=== PATIENT | male | born 1940 | race Caucasian/White ===

== ENCOUNTER → 2017-11-10 08:34 | Outpatient (CLI) | payer MEDICARE, SELFPAY ==
[2017-11-10 12:37] LABS: ALB/GLOB Ratio 0.9 RATIO (0.9-2.4); AST(SGOT) 17 U/L (15-37); Alanine Aminotransfer ALT/SGPT 19 U/L (16-61); Albumin, Serum 3.7 g/dL (3.2-5.0); Alkaline Phosphatase 71 U/L (45-117); Anion Gap 7 (5-15); BUN 24 mg/dL (7-18); BUN/Creat Ratio 17.4 RATIO (10-20); Calcium,Total 9.1 mg/dL (8.5-10.1); Chloride 105 mmol/L (98-107); Cholesterol 151 mg/dL (200); Creatinine, Serum 1.38 mg/dL (0.70-1.30); EST Glomerular Filtration Rate 53 mL/min (>60); Est Glom Filt Rate - Afr Amer 64 mL/min (>60); Glucose 142 mg/dL (74-106); High Density Lipoprotein 48 mg/dL; Potassium 4.6 mmol/L (3.5-5.1); Protein, Total 7.7 g/dL (6.4-8.2); Sodium Level 141 mmol/L (136-145); Triglycerides 171 mg/dL; Very Low Density Lipoprotein 34 mg/dL (5-40)
== END ==
LOC: LAB.FUTURE 05-13 00:32 → BFHLAB 03-08 08:52
PROVIDERS: Family Provider Family Medicine; PCP Family Medicine; Visit Provider Family Medicine
DX: I12.9 Hypertensive chronic kidney disease with stage 1 through stage 4 chronic kidney disease, or unspecified chronic kidney disease (principal); E11.22 Type 2 diabetes mellitus with diabetic chronic kidney disease; N18.3 Chronic kidney disease, stage 3 (moderate); E11.21 Type 2 diabetes mellitus with diabetic nephropathy; E78.5 Hyperlipidemia, unspecified
CPT/HCPCS: 36415; 80053; 80061; 83036

== ENCOUNTER 2018-04-09 17:26 | Emergency (ER) | payer MEDICARE, SELFPAY ==
[2018-04-09] VITALS (10 sets, daily range): BP systolic 147–217; BP diastolic 70–131; PULSE 91–113; RESP 14–22; TEMP 36.7; O2SAT 95–100; BMI 24.7
[2018-04-09] MEDS: Morphine 4 MG/ML Syringe IV (18:47)
[2018-04-09] MEDS: Ondansetron 4 MG/2 ML Vial IV (18:47)
[2018-04-09] MEDS: Propofol 200 MG/20 ML Vial IV BOLUS (19:42)
--- NOTE | 2018-04-09 20:35 | ED.VISSUMM ---
- ER Visit Summary Date of Service: 04/09/18 Chief Complaint: [Fall] History of Present Illness: The patient is a 77 M [presents the emergency department with a fall that occurred prior to arrival in the emergency department. Patient states that he was on a ladder pruning a tree when he fell about 4 5 feet and landed onto a tree root with his left shoulder. Patient did strike his head but no loss of consciousness. Patient has been ambulatory. Patient complains mostly of pain in his left shoulder. Patient denies any neck pain or chest pain or abdominal pain. Past medical history significant for diabetes, hypertension, high cholesterol, and TIAs. Patient is not on any blood thinners.] Physical Examination: [HEENT-PERRLA, EOMI. Cranial nerves II through XII grossly intact. TMs clear. Mucous membranes moist. No adenopathy. Patient has no C-spine tenderness on palpation and normal active range of motion is painless. Patient has a small superficial abrasion to the left frontal scalp. Cardiovascular-regular rate and rhythm without murmur or ectopy Lungs-clear to auscultation, chest wall stable without crepitus or subcu emphysema Abdomen-normoactive bowel sounds, soft, nontender, no rebound or rigidity, no peritoneal signs. Extremities-intact ?4, normal range of motion, normal pulses. Left shoulder-patient has obvious sulcus sign. Patient has superficial abrasion noted. Patient has limited range of motion secondary to pain and deformity. He is nervously intact distally. Patient has superficial abrasion to his elbow. Test Results: [CT scan of the brain without contrast showed chronic involutional changes otherwise nothing acute. Patient had x-rays of the left shoulder that showed a fracture of the greater tubercle of the humerus and inferior dislocation of the glenohumeral joint.] Emergency Department Course and Treatment: [Patient was consented for procedural sedation and received a total of 80 mg of propofol with good sedation. I was able to easily reduce his shoulder by gentle traction. Patient was placed in a sling and swath. Repeat postreduction films obtained showed good reduction of the shoulder at the glenohumeral joint. Patient neurovascular intact distally afterwards.] Treatment Plan: [Patient will be given a prescription for [place] for pain. Patient will be referred to orthopedics on-call.] Disposition: [Discharged home in stable condition] Impression: [Left shoulder dislocation-reduced Humerus fracture Closed head injury Mechanical fall] This note was generated with Stuffle dictation software. It may contain incorrect words, spelling, and punctuation that were not noted in review of the chart prior to signing ED Disposition - Plan for ED Patient: Chief Complaint: Fall Referrals: Castillo Pride DO [Primary Care Provider] -
--- NOTE | 2018-04-09 20:38 | ED.DEP ---
ED Disposition - Plan for ED Patient: Chief Complaint: Fall Instructions: ED Mechanical Fall, ED Dislocation Shoulder Redu, ED Fx Upper Ext Prescriptions: Hydrocodone/Acetaminophen [[place] 5-325 Tablet] 1 ea PO 4X/DAY PRN PRN 5 Days #20 tab PRN Reason: Pain Referrals: Castillo Pride DO [Primary Care Provider] - John Mendoza MD [STAFF PHYSICIAN] - 3-5 Days
== END 2018-04-09 21:03 | disposition home or self-care (01) ==
PROVIDERS: Emergency Provider Emergency Medicine; Family Provider Family Medicine; PCP Family Medicine
DX: S43.035A Inferior dislocation of left humerus, initial encounter (principal); S42.252A Displaced fracture of greater tuberosity of left humerus, initial encounter for closed fracture; S00.01XA Abrasion of scalp, initial encounter; S50.319A Abrasion of unspecified elbow, initial encounter; W11.XXXA Fall on and from ladder, initial encounter; Y93.9 Activity, unspecified; Y92.9 Unspecified place or not applicable; E11.9 Type 2 diabetes mellitus without complications; I10 Essential (primary) hypertension; E78.00 Pure hypercholesterolemia, unspecified; Z86.73 Personal history of transient ischemic attack (TIA), and cerebral infarction without residual deficits; Z79.82 Long term (current) use of aspirin; Z79.84 Long term (current) use of oral hypoglycemic drugs; Z79.899 Other long term (current) drug therapy
CPT/HCPCS: 23665; 70450; 73030; 96374; 96375; 99284; J7030; A4216; J2405

== ENCOUNTER → 2018-05-05 14:52 | Outpatient (CLI) | payer MEDICARE, SELFPAY ==
[2018-05-05 17:28] LABS: Anion Gap 11 (5-15); BUN 26 mg/dL (7-18); BUN/Creat Ratio 16.6 RATIO (10-20); Calcium,Total 9.5 mg/dL (8.5-10.1); Chloride 100 mmol/L (98-107); Creatinine, Serum 1.57 mg/dL (0.70-1.30); EST Glomerular Filtration Rate 45 mL/min (>60); Est Glom Filt Rate - Afr Amer 55 mL/min (>60); Glucose 353 mg/dL (74-106); Potassium 4.5 mmol/L (3.5-5.1); Sodium Level 139 mmol/L (136-145)
[2018-05-05 17:35] LABS: Hemoglobin A1c 6.7 % (4.2-6.3)
[2018-05-05 17:52] LABS: Microalbumin,Random Urine 8.7 mg/L (NO RANGE EST.); Microalbumin:Creatinine Ratio 5.2 mg/g CRE (<30 mg/g CRE)
== END ==
LOC: LAB.FUTURE 11-04 00:34 → BFHLAB 03-08 08:51
PROVIDERS: Family Provider Family Medicine; PCP Family Medicine; Visit Provider Family Medicine
DX: E11.22 Type 2 diabetes mellitus with diabetic chronic kidney disease (principal); N18.3 Chronic kidney disease, stage 3 (moderate)
CPT/HCPCS: 36415; 80048; 82043; 82570; 83036

== ENCOUNTER → 2018-05-29 11:28 | Outpatient (CLI) | payer MEDICARE, SELFPAY ==
[2018-05-29 16:05] LABS: Anion Gap 9 (5-15); BUN 20 mg/dL (7-18); BUN/Creat Ratio 12.9 RATIO (10-20); Calcium,Total 9.1 mg/dL (8.5-10.1); Chloride 103 mmol/L (98-107); Creatinine, Serum 1.55 mg/dL (0.70-1.30); EST Glomerular Filtration Rate 46 mL/min (>60); Est Glom Filt Rate - Afr Amer 56 mL/min (>60); Glucose 312 mg/dL (74-106); Potassium 4.3 mmol/L (3.5-5.1); Sodium Level 136 mmol/L (136-145)
== END ==
PROVIDERS: Family Provider Family Medicine; PCP Family Medicine; Visit Provider Family Medicine
DX: N18.3 Chronic kidney disease, stage 3 (moderate) (principal)
CPT/HCPCS: 36415; 80048

== ENCOUNTER → 2019-02-08 09:54 | Outpatient (CLI) | payer MEDICARE, SELFPAY ==
[2019-02-08 12:15] LABS: Absolute Lymphocyte Count 1.79 X10^3/ul (0.83-4.51); Absolute Neutrophil Count 4.2 X10^3/uL (2.0-7.7); Basophil# 0.05 X10^3/uL; Basophil% 0.7 % (0-1); Eosinophil# 0.18 X10^3/uL; Eosinophils% 2.6 % (0-5); Hematocrit 42.3 % (40-54); Hemoglobin 14.6 g/dl (13.0-16.5); Lymphocyte # 1.79 X10^3/ul (4.0); Lymphocyte % 25.8 % (19-41); Mean Corp Hgb Conc 34.5 g/gl (32-36); Mean Corpuscular Hgb 32.7 pg (27.0-32.0); Mean Corpuscular Volume 94.6 fL (80-94); Mean Platelet Vol. 12.1 fl (6.2-12.0); Monocyte# 0.69 X10^3/uL; Monocyte% 9.9 % (0-10); Neutrophil # 4.24 X10^3/uL (2.7-7.7); Platelet Count 123 K/mm3 (150-450); RBC Distribution Width CV 12.3 % (11.6-14.6); RBC Distribution Width SD 41.8 fl (35.1-43.9); Red Blood Count 4.47 M/mm3 (4.6-6.2)
[2019-02-08 12:23] LABS: POSITIVE COUNT NO; POSITIVE DIFFERENTIAL NO; POSITIVE MORPHOLOGY NO
[2019-02-08 12:53] LABS: Hemoglobin A1c 8.1 % (4.2-6.3)
[2019-02-08 12:56] LABS: ALB/GLOB Ratio 0.9 RATIO (0.9-2.4); AST(SGOT) 21 U/L (15-37); Alanine Aminotransfer ALT/SGPT 26 U/L (16-61); Albumin, Serum 3.7 g/dL (3.2-5.0); Alkaline Phosphatase 72 U/L (45-117); Anion Gap 10 (5-15); BUN 31 mg/dL (7-18); BUN/Creat Ratio 22.8 RATIO (10-20); Calcium,Total 9.3 mg/dL (8.5-10.1); Chloride 105 mmol/L (98-107); Cholesterol 175 mg/dL (200); Creatinine, Serum 1.36 mg/dL (0.70-1.30); EST Glomerular Filtration Rate 54 mL/min (>60); Est Glom Filt Rate - Afr Amer 65 mL/min (>60); Globulin 4.3 g/dL (2.2-4.2); Glucose 188 mg/dL (74-106); High Density Lipoprotein 46 mg/dL; Potassium 4.5 mmol/L (3.5-5.1); Sodium Level 139 mmol/L (136-145); Triglycerides 251 mg/dL; Very Low Density Lipoprotein 50 mg/dL (5-40)
[2019-02-08 13:00] LABS: Vitamin D,25 Hydroxy 42.2 ng/mL (29.95-100.01)
[2019-02-08 13:07] LABS: Microalbumin,Random Urine 5.2 mg/L (NO RANGE EST.); Microalbumin:Creatinine Ratio 9.2 mg/g CRE (<30 mg/g CRE)
== END ==
LOC: LAB.FUTURE 08-17 00:31 → BFHLAB 09-09 08:54
PROVIDERS: Family Provider Family Medicine; PCP Family Medicine; Visit Provider Family Medicine
DX: I12.9 Hypertensive chronic kidney disease with stage 1 through stage 4 chronic kidney disease, or unspecified chronic kidney disease (principal); E11.22 Type 2 diabetes mellitus with diabetic chronic kidney disease; N18.3 Chronic kidney disease, stage 3 (moderate)
CPT/HCPCS: 36415; 80053; 80061; 82043; 82306; 82570; 83036; 85025

== ENCOUNTER → 2020-04-25 14:56 | Outpatient (CLI) | payer MEDICARE, SELFPAY ==
--- NOTE | 2020-04-25 15:02 | CT_ITS ---
We are attempting to reach an attending provider to discuss findings. An addendum with communication details will be sent when the communication is complete. STUDY: CT BRAIN WITHOUT CONTRAST REASON FOR EXAM: Male, 79 years old. Acute CVA. RADIATION DOSAGE (If Supplied By Facility): CTDIvol = ( 60.81 ) mGy, DLP = ( 1044.28 ) mGycm TECHNIQUE: Transaxial CT imaging of the brain was performed without administration of intravenous contrast material. Individualized dose optimization techniques were used for this CT. COMPARISON: 04/09/2018. FINDINGS: Normal soft tissue structures. Normal calvarium. Normal size ventricles and extra-axial spaces for the patient''s age. There are areas of decreased attenuation within the white matter tracts of the supratentorial brain, consistent with microvascular disease changes. There is encephalomalacia and white matter on the right frontoparietal region suggesting remote infarct. There is minimal low attenuation within the white matter of the left occipital lobe suggesting remote or subacute infarct. This was not previously noted. Mild associated sulcal effacement without mass effect or midline shift. Small area of encephalomalacia, consistent with remote infarct, is again seen in the right occipital lobe. Normal basal ganglia and thalami. Normal brainstem. Normal cerebellum. There is no intracranial hemorrhage. There are no findings of an acute ischemic infarction. Normal visualized paranasal sinuses. CT/Brain/Head without Contrast IMPRESSION: 1. Subacute infarct in the left occipital lobe. 2. 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 Electronically Signed: Silas London DO at 16:03 EDT Tel [phone], Service support ,
== END ==
PROVIDERS: PCP Family Medicine; Referring Provider Family Medicine; Visit Provider Family Medicine
DX: I63.9 Cerebral infarction, unspecified (principal); R41.89 Other symptoms and signs involving cognitive functions and awareness
CPT/HCPCS: 70450

== ENCOUNTER 2020-05-03 13:30 | Outpatient (RCR) | payer MEDICARE, SELFPAY ==
--- NOTE | 2020-05-03 14:50 | HP.PTEVAL_ITS ---
Patient's Visit Information MARIN AVERY is a 79 year old M referred to Physical Therapy by Dr. Castillo Pride DO with a diagnosis of CVA. Date of Evaluation: 05/03/20 Physical Therapist: Jeremiah Sullivan PT, ATC - Visit Plan Frequency: 2-3x /Week Duration: 4 Weeks Plan: R UE strengthening, scap stab ex's, UBE, and HEP - Subjective CVA: 2 weeks ago. Pt had a CT scan which showed he had a CVA at that time as well as 2 other ones from the past. Pt reports his R UE has been effected from this incident. Pt notes his memory is not the same either. Pt notes he is getting stronger in his R UE, but still has weakness present. Pt also notes l osing partial peripheral vision of the R eye. Pt has occasional tingling or numbness in R UE. Pt reports he is limited with his usual activity such as cutting wood and hammering nails. No sleep difficulty at this time, but does note he has his sleep schedule mixed up as he sleeps all day. No pain this date. - Objective Neuro: B UE sensation is WNL to light touch. B bicepital reflex 2/3. ROM: L shoulder flex= 105, abd= 105, ER= 40; R shoulder flex= 115, abd= 115, ER= 40. MMT: R UE is grossly 4-/5 throughout. L UE 5/5 throughout. Gait: Pt is able to ambulate greater than 1000' without difficulty - Goals Goal 1:: Increase R UE strength x 1 grade to aid with IADL's Goal Time Frame: 4-6 Weeks Goal 2:: I with HEP Goal Time Frame: 4-6 Weeks Goal 3:: Pt will return to performing all IADL's without limitation Goal Time Frame: 4-6 Weeks - Rehabilitation Potential Physical Therapy Diagnosis: Pt has R UE weakness and visual deficits secondary to CVA Rehabilitation Potential: Good - Anticipated Interventions Patient/Client Instruction: Educate patient on: Condition, Plan of Care For the Purpose of:: To improve self management Therapeutic Exercise to Include: Strength training, Endurance training, Coordination, Scapular Strength/Stabilization For the Purpose of:: To increase ROM, To improve muscle performance and motor function Thank you for the opportunity to evaluate your patient. For Medicare and Medicare HMO plans, please review the plan of care and approve it. It will need to be FAXED BACK to us at [phone] for Medicare purposes. For Medicare only, by signing this I certify the plan of care. Please let me know if there are questions or concerns regarding this plan of care. Physician Signature: Date:
--- NOTE | 2020-06-07 07:38 | HP.PT.NRP ---
MARIN AVERY was seen in my office for initial evaluation on 05/03/20. The following Plan of Care was established for this patient: Initial Frequency: 2-3x /Week Initial Duration: 4 Weeks Patient/Client Instruction: Educate patient on: Condition, Plan of Care For the Purpose of:: To improve self management Therapeutic Exercise to Include: Strength training, Endurance training, Coordination, Scapular Strength/Stabilization For the Purpose of:: To increase ROM, To improve muscle performance and motor function This patient was last seen in our office . Pertinent comments regarding their Physical therapy will appear below: Pt was evaluated for R UE weakness on the date of 05/03/20. Pt has not returned through todays date and is discontinued at this time. At this point I will be discontinuing this patient from physical therapy. I would be happy to see this patient again in the future if found appropriate by the physician. Thank you! Jeremiah Sullivan, PT, ATC
== END 2020-05-03 19:00 | disposition home or self-care (01) ==
LOC: PT 13:30
PROVIDERS: PCP Family Medicine; Referring Provider Family Medicine; Visit Provider Family Medicine
DX: I69.30 Unspecified sequelae of cerebral infarction (principal); R29.898 Other symptoms and signs involving the musculoskeletal system
CPT/HCPCS: 97161

== ENCOUNTER → 2020-06-07 12:55 | Outpatient (CLI) | payer MEDICARE, SELFPAY ==
[2018-04-09 17:28] VITALS: BMI 24.7
--- NOTE | 2020-06-07 12:58 | CDU_ITS ---
Reason For Study: CVA Rt. Velocities/BP Lt. Velocities/BP Prox CCA 119.3/9.7 cm/sec. Prox CCA 90.0/7.9 cm/sec. Mid CCA 110.1/9.7 cm/sec. Mid CCA 90.0/11.5 cm/sec. Dist CCA 84.6/7.9 cm/sec. Dist CCA 70.0/7.9 cm/sec. Prox ICA 86.0/14.6 cm/sec. Prox ICA 91.9/17.0 cm/sec. Mid ICA 81.6/15.7 cm/sec. Mid ICA 88.2/18.8 cm/sec. Dist ICA 89.4/20.1 cm/sec. Dist ICA 90.0/20.6 cm/sec. Rt. ICA/CCA = .8. Lt. ICA/CCA = 1.0. Prox ECA 132.1 cm/sec. Prox ECA 166.8/6.0 cm/sec. Rt. Vert. 54.2/10.2 cm/sec. Lt. Vert. 63.0 cm/sec. Right Extracranial There is intimal thickening but no significant atherosclerotic plaque noted in the right common carotid artery. There is homogeneous, smooth atherosclerotic plaque noted in the right internal carotid artery. There is homogeneous, smooth atherosclerotic plaque noted in the right external carotid artery. Antegrade flow is noted in the right vertebral artery. Left Extracranial There is intimal thickening but no significant atherosclerotic plaque noted in the left common carotid artery. There is heterogeneous, irregular atherosclerotic plaque noted in the left internal carotid artery. There is homogeneous, smooth atherosclerotic plaque noted in the left external carotid artery. Antegrade flow is noted in the left vertebral artery. Procedure Carotid Duplex [id number]. This is a Carotid Duplex examination using B-mode, color flow and specral Doppler. The exam was diagnostic. Exam performed in department. Interpretation Summary Mild (<50%) stenosis right extracranial internal carotid. Mild (<50%) stenosis left extracranial internal carotid. Flow within the vertebral arteries is antegrade bilaterally. Ordering Physician: Castillo Pride Performed By: Cornleius Brooks RVT and Student
--- NOTE | 2020-06-07 12:59 | ECHOD_ITS ---
Reason For Study: CVA, HTN Procedure This was a 2D Doppler, Color Flow transthoracic echocardiogram. Exam performed in department. Left Ventricle Normal LV size. The estimated ejection fraction is 70 %. No evidence for diastolic dysfunction. No regional wall motion abnormalities noted. Right Ventricle Normal RV size. Normal systolic function. Atria Normal left atrium. Normal right atrium. No doppler evidence for ASD. Mitral Valve There is no mitral valve stenosis. Mild (1+) mitral valve insufficiency. Tricuspid Valve There is no tricuspid stenosis. Pulmonary artery systolic pressure is 30 mmHg. Trivial tricuspid valve insufficiency. Aortic Valve Trisinus/trileaflet aortic valve. There is no aortic stenosis. No aortic valve insufficiency. Pulmonic Valve There is no pulmonic valvular stenosis. Trivial pulmonic valve insufficiency. Great Vessels Normal aortic root. Pericardium/Pleural No pericardial effusion. Medication Previously negative bubble study on MARCIANO in '. MMode/2D Measurements & Calculations LVIDd: 3.9 cm IVSd: 0.81 cm Ao root diam: 2.9 cm LVIDs: 2.6 cm LVPWd: 0.84 cm RVDd: 4.6 cm FS: 34.4 % LAV(MOD-bp): 32.2 ml LVAd ap4: 21.8 cm2 SV(MOD-sp4): 37.1 ml LAV(MOD-bp) Indexed: 18.7 ml/m2 EDV(MOD-sp4): 58.3 ml LAV(MOD-sp2): 36.5 ml EDV(sp4-el): 61.1 ml LAV(MOD-sp4): 26.9 ml LVAs ap4: 11.9 cm2 ESV(MOD-sp4): 21.2 ml ESV(sp4-el): 21.8 ml EF(MOD-sp4): 63.6 % EF(sp4-el): 64.3 % SV(sp4-el): 39.3 ml LA A4 area: 12.4 cm2 LA dimension(2D): 3.6 cm RA A4 area: 12.2 cm2 Doppler Measurements & Calculations Lat Peak E' Ariel: 7.3 cm/sec Med Peak E' Ariel: 7.0 cm/sec MV V2 max: 114.5 cm/sec MV max P.2 mmHg MV V2 mean: 68.5 cm/sec MV mean P.1 mmHg MV V2 VTI: 19.3 cm Ao V2 max: 113.1 cm/sec LV V1 max: 79.4 cm/sec PA V2 max: 141.4 cm/sec Ao max P.1 mmHg LV V1 max P.5 mmHg PI end-d ariel: 79.2 cm/sec TR max ariel: 267.3 cm/sec TR max P.7 mmHg Interpretation Summary The estimated ejection fraction is 70 %. No evidence for diastolic dysfunction. Mild (1+) mitral valve insufficiency. Ordering Physician: Castillo Pride Referring Physician: Castillo Pride Performed By: Jessica Askew, BARAK, RVT
== END ==
PROVIDERS: PCP Family Medicine; Referring Provider Family Medicine; Visit Provider Family Medicine
DX: I63.9 Cerebral infarction, unspecified (principal); I10 Essential (primary) hypertension; I63.89 Other cerebral infarction
CPT/HCPCS: 93306; 93880

== ENCOUNTER 2020-07-17 13:08 | Emergency (ER) | payer MEDICARE, SELFPAY ==
[2020-07-07 13:29] VITALS: BMI 24.1
[2020-07-17 13:09] VITALS: BP 179/78; PULSE 73; RESP 17; TEMP 36.6; O2SAT 98; BMI 22.8
--- NOTE | 2020-07-17 13:22 | CT_ITS ---
INDICATION: WEAKNESS. FELL AND HIT HEAD. RECENT CVA. EXAMINATION: CT BRAIN - CT Head or Brain W/O Contrast Injection COMPARISON: Previous CT scan of the head obtained on 04/25/2020 . TECHNIQUE: A CT scan of the head was performed without IV contrast in the axial plane. Coronal and sagittal reconstruction images were also obtained. This exam was performed according to our departmental dose-optimization program, which includes automated exposure control, adjustment of the mA and/or kV according to patient size and/or use of iterative reconstruction technique. FINDINGS: The benson, medulla, and cerebellum appear to be normal. The ventricles and sulci are normal in size and shape. Old cortical infarcts are noted involving the calcarine cortex of the occipital lobes bilaterally and the right middle frontal gyrus. These infarcts were noted previously and are unchanged. The basal ganglia appear to be normal. The inner and outer tables of the skull are intact. The frontal, ethmoid, maxillary, and sphenoid sinuses are normal. The mastoid air cells are normal. CT/Brain/Head without Contrast IMPRESSION: Old cortical infarcts are noted involving the occipital lobes bilaterally and the middle frontal gyrus of the right frontal lobe. No acute abnormalities are identified. Electronically Signed: Tommy Steinberg, at 14:51 EST Tel , Service support ,
--- NOTE | 2020-07-17 13:22 | EKG12_ITS ---
Test Reason : WEAKNESS Blood Pressure : / mmHG Vent. Rate : 072 BPM Atrial Rate : 072 BPM P-R Int : 284 ms QRS Dur : 090 ms QT Int : 374 ms P-R-T Axes : 034 019 016 degrees QTc Int : 409 ms Sinus rhythm with 1st degree A-V block Otherwise normal ECG Confirmed by DEBORAH GARCIA, YUKI ([id number]), editorial project manager PARVIZ HARRIS ([id number]) on 07/19/2020 10:41:09 AM Referred By: WOLF Confirmed By:YUKI CABRERA MD
--- NOTE | 2020-07-17 13:25 | ED.DCSUM_ITS ---
History of Present Illness Chief Complaint: Weakness Informant: Patient Narrative: 79-year-old male states he got up much later than normal because he has not been sleeping well due to of chronic pain in his hip from arthritis. He went into the kitchen to make himself a cup of coffee states that he got very weak and lightheaded. He states he felt sweaty. He states he felt tingling in his right hand. He ended up falling down to the ground where he hit his head on the counter. He never lost consciousness however. He denies any chest pain shortness of breath. He denies any palpitations. - Past Medical History (1) Hyperlipemia Status: Chronic (2) Type 2 diabetes mellitus Status: Chronic Past Medical History - Allergies and Home Meds Allergies/Adverse Reactions: Allergies No Known Allergies Allergy (Verified 07/07/20 13:44) Primary Care Physician: Castillo Pride DO [Primary Care Provider] - 3-5 Days Past Medical History: - - Prior strokes Surgical History: no surgical history Lives: Spouse/ Significant Other Smoking Status: Never smoker - Family History Paternal Family History: Reports: Diabetes Maternal Family History: Reports: No pertinent history Review of Systems General: Reports: Malaise. Denies: Chills, Fever, Sweats Eyes: Denies: Visual changes - bilaterally, Diplopia ENT: Denies: Rhinorrhea, Sore throat Cardiovascular: Denies: Chest pain, Palpitations Respiratory: Denies: Dyspnea, Cough, Dyspnea on exertion Gastrointestinal: Denies: Abdominal pain, Nausea, Vomiting, Diarrhea, Melena, Hematochezia Genitourinary: Denies: Dysuria, Hematuria, Frequency Musculoskeletal: Denies: Back pain, Extremity Pain Skin: Denies: Rash, Wounds Neurological: Reports: Headache. Denies: Weakness, Numbness Physical Exam Vital Signs/Narrative: Vital Signs Temp Pulse Resp BP Pulse Ox 07/17/20 13:09 97.9 F 73 17 179/78 H 98 Inital Vital Signs reviewed: Yes General: Well nourished, Well developed, No Acute Distress Head: Normocephalic, Trauma - There is a linear 2 cm superficial abrasion of the right forehead. Eyes: Perrl, EOMI ENT: Moist mucous membranes, No rhinorrhea Neck: Supple, Nontender Cardiovascular: Regular rate, Regular rhythm, No murmurs Respiratory: No distress, CTA bilaterally, Chest nontender Abdomen: Soft, Nontender, Nondistended, Normal bowel sounds Back: Nontender, Normal Inspection Extremities: Nontender, No edema Skin: Normal color, No rash Neurological: Alert, Oriented x3, Cranial nerves II-XII grossly intact, Normal Strength, Normal Sensation, - - NIH of 0 Psychological: Normal affect, Normal Mood Diagnostic/Tx/Re-eval Clinical Impression(s) from Imaging Studies Brain CT 07/17/20 13:22 IMPRESSION: Old cortical infarcts are noted involving the occipital lobes bilaterally and the middle frontal gyrus of the right frontal lobe. No acute abnormalities are identified. Electronically Signed: Tommy Steinberg, at 14:51 EST Tel , Service support , Chest X-Ray 07/17/20 14:07 IMPRESSION: Normal portable chest. Electronically Signed: Tommy Steinberg, at 14:52 EST Tel , Service support , Laboratory Last Values WBC 9.6 K/mm3 (4.4-11.0) 07/17/20 13:35 RBC 4.13 M/mm3 (4.6-6.2) L 07/17/20 13:35 Hgb 13.3 g/dL (13.0-16.5) 07/17/20 13:35 Hct 39.9 % (40-54) L 07/17/20 13:35 MCV 96.6 fL (80-94) H 07/17/20 13:35 MCH 32.2 pg (27.0-32.0) H 07/17/20 13:35 MCHC 33.3 g/dL (32-36) 07/17/20 13:35 RDW Std Deviation 41.1 fl (35.1-43.9) 07/17/20 13:35 RDW Coeff of Lesly 11.7 % (11.6-14.6) 07/17/20 13:35 Plt Count 178 K/mm3 (150-450) 07/17/20 13:35 MPV 10.2 fl (6.2-12.0) 07/17/20 13:35 Immature Gran % (Auto) 0.400 % (0.0-0.9) 07/17/20 13:35 Neut % (Auto) 74.6 % (47-70) H 07/17/20 13:35 Lymph % (Auto) 14.2 % (19-41) L 07/17/20 13:35 [place] % (Auto) 7.0 % (0-10) 07/17/20 13:35 Eos % (Auto) 3.2 % (0-5) 07/17/20 13:35 Baso % (Auto) 0.6 % (0-1) 07/17/20 13:35 Absolute Neuts (auto) 7.1 X10^3/uL (2.0-7.7) 07/17/20 13:35 Absolute Lymphs (auto) 1.36 X10^3/uL (0.83-4.51) 07/17/20 13:35 Nucleated RBC % 0 % (0-5) 07/17/20 13:35 Sodium 139 mmol/L (136-145) 07/17/20 13:35 Potassium 4.6 mmol/L (3.5-5.1) 07/17/20 13:35 Chloride 104 mmol/L (98-107) 07/17/20 13:35 Carbon Dioxide 31.0 mmol/L (21.0-32.0) 07/17/20 13:35 Anion Gap 4 (5-15) L 07/17/20 13:35 BUN 18 mg/dL (7-18) 07/17/20 13:35 Creatinine 1.35 mg/dL (0.70-1.30) H 07/17/20 13:35 Estim Creat Clear Calc 37.33 ml/min 07/17/20 13:35 Est GFR (MDRD) Af Amer 65 mL/min (>60) 07/17/20 13:35 Est GFR (MDRD) Non-Af 54 mL/min (>60) L 07/17/20 13:35 BUN/Creatinine Ratio 13.3 RATIO (10-20) 07/17/20 13:35 Glucose 202 mg/dL (74-106) H 07/17/20 13:35 Calcium 9.2 mg/dL (8.5-10.1) 07/17/20 13:35 Magnesium 1.8 mg/dL (1.6-2.6) 07/17/20 13:35 Total Bilirubin 0.40 mg/dL (0.20-1.00) 07/17/20 13:35 AST 13 U/L (15-37) L 07/17/20 13:35 ALT 36 U/L (16-61) 07/17/20 13:35 Alkaline Phosphatase 85 U/L (45-117) 07/17/20 13:35 Troponin I < 0.015 ng/mL (<0.045) 07/17/20 13:35 Total Protein 7.6 g/dL (6.4-8.2) 07/17/20 13:35 Albumin 3.3 g/dL (3.2-5.0) 07/17/20 13:35 Globulin 4.3 g/dL (2.2-4.2) H 07/17/20 13:35 Albumin/Globulin Ratio 0.8 RATIO (0.9-2.4) L 07/17/20 13:35 Urine Color Yellow (Yellow) 07/17/20 14:30 Urine Clarity Clear (Clear) 07/17/20 14:30 Urine pH 6.0 (5.0 - 8.0) 07/17/20 14:30 Ur Specific [place] 1.020 (1.002-1.030) 07/17/20 14:30 Urine Protein 15 mg/dl (Negative) H 07/17/20 14:30 Urine Glucose (UA) 250 mg/dl (Normal) H 07/17/20 14:30 Urine Ketones Negative mg/dl (Negative) 07/17/20 14:30 Urine Occult Blood Negative /ul (Negative) 07/17/20 14:30 Urine Nitrite Negative (Negative) 07/17/20 14:30 Urine Bilirubin Negative mg/dL (Negative) 07/17/20 14:30 Urine Urobilinogen Normal mg/dl (Normal) 07/17/20 14:30 Ur Leukocyte Esterase Negative /ul (Negative) 07/17/20 14:30 Urine RBC 0 SEEN /hpf (0-5) 07/17/20 14:30 Urine WBC 0 SEEN /hpf (0-5) 07/17/20 14:30 Ur Squamous Epith Cells 0 SEEN /hpf (0-5) 07/17/20 14:30 Urine Bacteria 0 SEEN /hpf (None Seen) 07/17/20 14:30 Urine Mucus 0 SEEN /hpf (<or=2+) 07/17/20 14:30 - EKG Initial EKG Interpretation: Sinus Rhythm - EKG shows a sinus rhythm with a first-degree AV block. Ventricular rate of 72. No features of ACS noted. - Medical Decision Making My interpretation of the chest film is no acute findings. CT the brain was negative for acute trauma. Basic blood work appeared normal. Patient received some IV fluids. He has been sitting up in the bed on the monitor. No dysrhythmias were noted. He has been eating and drinking. Get him up and have him ambulate. If that goes well we should be able to get him home. I do not see an obvious cause for his near syncopal events. But his work-up is otherwise reassuring. ED Disposition - Plan for ED Patient: Disposition: Home or Assisted Living Diagnosis: Near syncope, Forehead contusion, Forehead abrasion Instructions: ED Head Injury Adult, ED Near-Fainting Uncertain Cause Referrals: Castillo Pride DO [Primary Care Provider] - 3-5 Days
[2020-07-17 13:42] LABS: Absolute Lymphocyte Count 1.36 X10^3/uL (0.83-4.51); Absolute Neutrophil Count 7.1 X10^3/uL (2.0-7.7); Basophil# 0.06 X10^3/uL; Basophil% 0.6 % (0-1); Eosinophil# 0.31 X10^3/uL; Eosinophils% 3.2 % (0-5); Hematocrit 39.9 % (40-54); Hemoglobin 13.3 g/dL (13.0-16.5); Lymphocyte # 1.36 X10^3/ul (4.0); Lymphocyte % 14.2 % (19-41); Mean Corp Hgb Conc 33.3 g/dL (32-36); Mean Corpuscular Hgb 32.2 pg (27.0-32.0); Mean Corpuscular Volume 96.6 fL (80-94); Mean Platelet Vol. 10.2 fl (6.2-12.0); Monocyte# 0.67 X10^3/uL; NRBC Flagged by Analyzer 0 % (0-5); Neutrophil # 7.14 X10^3/uL (2.7-7.7); Neutrophil % 74.6 % (47-70); Platelet Count 178 K/mm3 (150-450); RBC Distribution Width CV 11.7 % (11.6-14.6); RBC Distribution Width SD 41.1 fl (35.1-43.9); Red Blood Count 4.13 M/mm3 (4.6-6.2); White Blood Count 9.6 K/mm3 (4.4-11.0)
[2020-07-17 13:59] LABS: ALB/GLOB Ratio 0.8 RATIO (0.9-2.4); AST(SGOT) 13 U/L (15-37); Alanine Aminotransfer ALT/SGPT 36 U/L (16-61); Albumin, Serum 3.3 g/dL (3.2-5.0); Alkaline Phosphatase 85 U/L (45-117); Anion Gap 4 (5-15); BUN 18 mg/dL (7-18); BUN/Creat Ratio 13.3 RATIO (10-20); Calcium,Total 9.2 mg/dL (8.5-10.1); Chloride 104 mmol/L (98-107); Creatinine, Serum 1.35 mg/dL (0.70-1.30); EST Glomerular Filtration Rate 54 mL/min (>60); Est Glom Filt Rate - Afr Amer 65 mL/min (>60); Estimated Creatinine Clearance 37.33 ml/min; Globulin 4.3 g/dL (2.2-4.2); Glucose 202 mg/dL (74-106); Magnesium 1.8 mg/dL (1.6-2.6); Potassium 4.6 mmol/L (3.5-5.1); Protein, Total 7.6 g/dL (6.4-8.2); Sodium Level 139 mmol/L (136-145)
--- NOTE | 2020-07-17 14:07 | RAD_ITS ---
EXAM DESCRIPTION: PORTABLE AP CHEST CLINICAL HISTORY: 79 years Male, WEAKNESS, PT FELL AND HIT HEAD -- HX OF STROKE x4-6 WEEKS AGO WEAKNESS, PT FELL AND HIT HEAD -- HX OF STROKE x4-6 WEEKS AGO COMPARISON: None FINDINGS: The thorax is intact. The heart and mediastinum appear to be within normal limits. The lungs appear to be well areated without evidence of pneumonic consolidation or pleural effusion. RAD/Chest 1 View (Portable) IMPRESSION: Normal portable chest. Electronically Signed: Tommy Steinberg, at 14:52 EST Tel , Service support ,
[2020-07-17 14:38] LABS: Bacteria 0 SEEN /hpf (None Seen); Mucous, Urine 0 SEEN /hpf (<or=2+); Red Blood Cells-Urine 0 SEEN /hpf (0-5); Squamous Epithelial Cells - UA 0 SEEN /hpf (0-5); White Blood Cells 0 SEEN /hpf (0-5)
[2020-07-17 14:43] LABS: Color, Urine Yellow (Yellow); Glucose, Dipstick 250 mg/dl (Normal); Ketone-Dipstick Negative (Negative); Leukocyte Esterase-Dipstick Negative /ul (Negative); Nitrite-Dipstick Negative (Negative); Occult Blood-Urine Negative /ul (Negative); Protein-Dipstick 15 mg/dl (Negative); Urine Bilirubin Dipstick Negative (Negative); Urine Clarity Clear (Clear); Urine Urobilinogen Normal (Normal)
[2020-07-17 15:13] VITALS: BP 153/73; BP 155/78; BP 185/86; PULSE 79; PULSE 84
[2020-07-17 15:40] VITALS: BP 151/65; PULSE 78; RESP 16; O2SAT 97
== END 2020-07-17 15:59 | disposition home or self-care (01) ==
PROVIDERS: Emergency Provider Emergency Medicine; PCP Family Medicine
DX: R55 Syncope and collapse (principal); S00.83XA Contusion of other part of head, initial encounter; S00.81XA Abrasion of other part of head, initial encounter; E11.9 Type 2 diabetes mellitus without complications; Z79.84 Long term (current) use of oral hypoglycemic drugs; Z86.73 Personal history of transient ischemic attack (TIA), and cerebral infarction without residual deficits; W19.XXXA Unspecified fall, initial encounter; Z79.82 Long term (current) use of aspirin
CPT/HCPCS: 70450; 71045; 80053; 81001; 83735; 84484; 85025; 93005; 96360; 99285; J7040

== ENCOUNTER 2020-09-25 13:20 | Inpatient (IN) | payer MEDICARE, SELFPAY ==
[2020-09-25] VITALS (9 sets, daily range): BP systolic 131–196; BP diastolic 57–99; PULSE 76–94; RESP 15–16; TEMP 36.4–36.6; O2SAT 95–98; BMI 23.7; BMI 24.2; BMI 25.5
--- NOTE | 2020-09-25 13:51 | CT_ITS ---
STUDY: CT HEAD STROKE PROTOCOL W/O CONTRAST INJECTION REASON FOR EXAM: Male, 80 years old. Right sided weakness, facial droop, numbness/tingling to right face x 1 week, worse x yesterday. Hx hypertension, diabetes, CVA, TIA. RADIATION DOSAGE (If Supplied By Facility): CTDIvol = ( 44.99 ) mGy, DLP = ( a 12.98 ) mGycm TECHNIQUE: Transaxial CT imaging of the brain was performed without administration of intravenous contrast material. Individualized dose optimization techniques were used for this CT. COMPARISON: No relevant priors. FINDINGS: Normal soft tissue structures. Normal calvarium. There is mild cerebral atrophy with widening of the extra-axial spaces and ventricular dilatation. There are areas of decreased attenuation within the white matter tracts of the supratentorial brain, consistent with microvascular disease changes. Focal encephalomalacia is seen in the deep right frontoparietal lobe in keeping with prior ischemic insult. There is also a focal area of encephalomalacia in the left posterior parietal occipital lobe suggestive of prior infarction. Normal basal ganglia and thalami. Normal brainstem. Normal cerebellum. There is no intracranial hemorrhage. There are no findings of an acute ischemic infarction. Atherosclerotic plaque formation of the vertebral arteries and cavernous portions of the internal carotid arteries bilaterally. Normal visualized paranasal sinuses. CT/STROKE Brain/Head without Cont IMPRESSION: Chronic involutional changes of the brain. Stable old infarctions involving the right deep frontal region as well as the left posterior parietal occipital lobes. N.B. : The above information has been verbally conveyed by Ubaldo Lozada MD to Josesito Fontanez on 09/25/2020 14:18:09 (ET). Electronically Signed: Ubaldo Lozada MD at 14:19 EST , Service support ,
--- NOTE | 2020-09-25 13:51 | EKG12_ITS ---
Test Reason : NEURO Blood Pressure : / mmHG Vent. Rate : 080 BPM Atrial Rate : 080 BPM P-R Int : 278 ms QRS Dur : 082 ms QT Int : 352 ms P-R-T Axes : 034 007 018 degrees QTc Int : 405 ms Sinus rhythm with 1st degree A-V block Otherwise normal ECG Confirmed by DEBORAH GARCIA, YUKI ([id number]), newspaper photo editor PARVIZ HARRIS ([id number]) on 09/27/2020 1:26:54 PM Referred By: SONA Confirmed By:YUKI CABRERA MD
--- NOTE | 2020-09-25 13:53 | ED.DCSUM_ITS ---
History of Present Illness Chief Complaint: Neuro S/Sx Informant: Patient Onset: Days Context: Gradual Onset Timing: Continuous Current Severity: Moderate Maximum Severity: Moderate Narrative: The patient is an 80-year-old male with medical history significant for hypertension, hyperlipidemia, and multiple prior strokes that presents to the emergency department with strokelike symptoms. Patient states that about 3 days ago, he began to have some tingling in his right face and right arm. He states it progressed to where his right arm has felt clumsy. He states his symptoms have been going on for at least 72 hours. They have not waxed or waned. He is concerned that he may have had another stroke. He denies changes in vision. He denies changes in balance. He has been compliant with his aspirin therapy. He denies any trauma. Prior similar symptoms: Yes Recent Illness/Hospitalization: No Past Medical History - Allergies and Home Meds Allergies/Adverse Reactions: Allergies No Known Allergies Allergy (Verified 09/25/20 13:20) Primary Care Physician: Castillo Pride DO [Primary Care Provider] - Prior records reviewed: Yes Past Medical History: - - Hypertension, hyperlipidemia, prior stroke Surgical History: no surgical history Smoking Status: Never smoker - Family History Paternal Family History: Reports: Diabetes Maternal Family History: Reports: No pertinent history Review of Systems General: Denies: Chills, Fever, Sweats Eyes: Denies: Visual changes - bilaterally, Diplopia ENT: Denies: Rhinorrhea, Sore throat Cardiovascular: Denies: Chest pain, Palpitations Respiratory: Denies: Dyspnea, Cough, Dyspnea on exertion Gastrointestinal: Denies: Abdominal pain, Nausea, Vomiting, Diarrhea, Melena, Hematochezia Genitourinary: Denies: Dysuria, Hematuria, Frequency Musculoskeletal: Denies: Back pain, Extremity Pain Skin: Denies: Rash, Wounds Neurological: Denies: Headache, Weakness, Numbness Physical Exam Vital Signs/Narrative: Vital Signs Temp Pulse Resp BP Pulse Ox 09/25/20 13:21 97.7 F L 89 16 143/83 H 96 Inital Vital Signs reviewed: Yes General: Well nourished, Well developed, No Acute Distress Head: Normocephalic, Atraumatic Eyes: Perrl, EOMI ENT: Moist mucous membranes, No rhinorrhea Neck: Supple, Nontender Cardiovascular: Regular rate, Regular rhythm, No murmurs Respiratory: No distress, CTA bilaterally, Chest nontender Abdomen: Soft, Nontender, Nondistended, Normal bowel sounds Back: Nontender, Normal Inspection Extremities: Nontender, No edema Skin: Normal color, No rash Neurological: Alert, Oriented x3, Normal Sensation, Right side facial droop Psychological: Normal affect, Normal Mood Diagnostic/Tx/Re-eval Clinical Impression(s) from Imaging Studies Brain CT 09/25/20 13:51 IMPRESSION: Chronic involutional changes of the brain. Stable old infarctions involving the right deep frontal region as well as the left posterior parietal occipital lobes. N.B. : The above information has been verbally conveyed by Ubaldo Lozada MD to Josesito Fontanez on 09/25/2020 14:18:09 (ET). Electronically Signed: Ubaldo Lozada MD at 14:19 EST , Service support , ADDENDUM: 09/25/20 1426 IMPRESSION: Chronic involutional changes of the brain. Stable old infarctions involving the right deep frontal region as well as the left posterior parietal occipital lobes. N.B. : The above information has been verbally conveyed by Ubaldo Lozada MD to Josesito Fontanez on 09/25/2020 14:18:09 (ET). Electronically Signed: Ubaldo Lozada MD at 14:19 EST , Service support , Chest X-Ray 09/25/20 14:15 IMPRESSION: Stable examination. No acute abnormality is seen. Electronically Signed: Ubaldo Lozada MD at 14:36 EST , Service support , Abnormal Lab Results 09/25/20 09/25/20 09/25/20 13:40 13:40 13:40 WBC 7.5 RBC 4.39 L Hgb 15.2 Hct 41.5 MCV 94.5 H MCH 34.6 H MCHC 36.6 H RDW Std Deviation 41.6 RDW Coeff of Lesly 12.0 Plt Count 141 L MPV 12.0 Immature Gran % (Auto) 0.700 Neut % (Auto) 67.9 Lymph % (Auto) 18.9 L [place] % (Auto) 9.1 Eos % (Auto) 2.5 Baso % (Auto) 0.9 Absolute Neuts (auto) 5.1 Absolute Lymphs (auto) 1.42 Nucleated RBC % 0 PT 12.3 INR 1.0 APTT 22.6 L Sodium 134 L Potassium 4.7 Chloride 101 Carbon Dioxide 26.0 Anion Gap 7 BUN 28 H Creatinine 1.38 H Estim Creat Clear Calc 37.24 Est GFR (MDRD) Af Amer 63 Est GFR (MDRD) Non-Af 52 L BUN/Creatinine Ratio 20.3 H Glucose 353 H Calcium 9.7 Troponin I < 0.015 - Rhythm Strip Rhythm Strip: Sinus Rhythm Rate: 70 Ectopy: None - EKG Initial EKG Interpretation: Sinus Rhythm, No Acute Injury Pattern Prior: Unchanged - Medical Decision Making The patient has an NIH of 2. He does have some clumsiness of the right hand. He also has a mild facial droop on the right. The symptoms have been going on for 72 hours. Stroke team is not activated as the patient is outside the window. Patient did undergo noncontrast CT. This was negative for acute process. Again, the patient is outside the window for TPA or even retrieval. At this point, given his age and risks, along with his focal symptoms, he will be admitted for stroke work-up. Impression 1. Subacute stroke ED Disposition - Plan for ED Patient: Referrals: Castillo Pride DO [Primary Care Provider] -
--- NOTE | 2020-09-25 14:15 | RAD_ITS ---
STUDY: X-RAY CHEST REASON FOR EXAM: Male, 80 years old. RIGHT SIDED WEAKNESS, TINGLING, AND NUMBNESS TO RIGHT SIDE OF FACE, WITH FACIAL DROOP FOR A WEEK -- HX OF CVA/TIA AND HTN TECHNIQUE: Single AP portable view of the chest. COMPARISON: Comparison is made with prior examination dated 07/17/2020. FINDINGS: EKG electrodes are seen. The lungs are clear and expanded. There is no demonstrated pleural abnormality. Normal size heart. Normal mediastinum and yuli. Normal visualized pulmonary arteries. There is atherosclerotic calcification of the aortic arch with tortuosity. There are diffuse degenerative changes of the visualized thoracic spine. Normal visualized ribs, clavicles, and shoulders. There is no demonstrated abnormality of the visualized soft tissue structures of the upper abdomen. RAD/Chest 1 View IMPRESSION: Stable examination. No acute abnormality is seen. Electronically Signed: Ubaldo Lozada MD at 14:36 EST , Service support ,
[2020-09-25 14:17] LABS: Absolute Lymphocyte Count 1.42 X10^3/uL (0.83-4.51); Absolute Neutrophil Count 5.1 X10^3/uL (2.0-7.7); Basophil# 0.07 X10^3/uL; Basophil% 0.9 % (0-1); Eosinophil# 0.19 X10^3/uL; Eosinophils% 2.5 % (0-5); Hematocrit 41.5 % (40-54); Hemoglobin 15.2 g/dL (13.0-16.5); Lymphocyte # 1.42 X10^3/ul (4.0); Lymphocyte % 18.9 % (19-41); Mean Corp Hgb Conc 36.6 g/dL (32-36); Mean Corpuscular Hgb 34.6 pg (27.0-32.0); Mean Corpuscular Volume 94.5 fL (80-94); Monocyte# 0.68 X10^3/uL; Monocyte% 9.1 % (0-10); NRBC Flagged by Analyzer 0 % (0-5); Neutrophil # 5.09 X10^3/uL (2.7-7.7); Neutrophil % 67.9 % (47-70); Platelet Count 141 K/mm3 (150-450); RBC Distribution Width SD 41.6 fl (35.1-43.9); Red Blood Count 4.39 M/mm3 (4.6-6.2); White Blood Count 7.5 K/mm3 (4.4-11.0)
[2020-09-25 14:20] LABS: Prothrombin Time (Protime)PT. 12.3 SECONDS (11.7-14.9)
[2020-09-25 14:21] LABS: Partial Thromboplast Time 22.6 Seconds (24.1-36.2)
[2020-09-25 14:29] LABS: Anion Gap 7 (5-15); BUN 28 mg/dL (7-18); BUN/Creat Ratio 20.3 RATIO (10-20); Calcium,Total 9.7 mg/dL (8.5-10.1); Chloride 101 mmol/L (98-107); Creatinine, Serum 1.38 mg/dL (0.70-1.30); EST Glomerular Filtration Rate 52 mL/min (>60); Est Glom Filt Rate - Afr Amer 63 mL/min (>60); Estimated Creatinine Clearance 37.24 ml/min; Glucose 353 mg/dL (74-106); Potassium 4.7 mmol/L (3.5-5.1); Sodium Level 134 mmol/L (136-145)
--- NOTE | 2020-09-25 16:02 | MRI_ITS ---
STUDY: MRA OF THE HEAD WITHOUT CONTRAST REASON FOR EXAM: Male, 80 years old. cva, rt side tingling, hx prev stroke TECHNIQUE: 3-D [id number] (TOF) imaging was performed with MIPs. The study was performed unenhanced. COMPARISON: None. FINDINGS: Normal bilateral petrous carotid arteries. Normal right cavernous carotid artery with a normal supraclinoid bifurcation. Normal left cavernous carotid artery with a normal supraclinoid bifurcation. Normal right A1 segments of the anterior cerebral artery. Normal left A1 segments of the anterior cerebral artery. Anterior communicating artery not visualized consistent with normal variant. Normal bilateral A2 segments of the anterior cerebral arteries. Normal right M1 and M2 segments of the middle cerebral arteries, with a normal M1 bifurcation. Normal left M1 and M2 segments of the middle cerebral arteries, with a normal M1 bifurcation. Normal right posterior communicating artery (PCOM). Left posterior communicating artery not visualized consistent with normal variant. Normal right vertebral. Left vertebral is hypoplastic terminating in PICA which is normal developmental variant Normal basilar artery with a normal basilar bifurcation. The visualized bilateral superior cerebellar (SCA) arteries are normal. Normal bilateral P1, P2 and visualized P3 segments of the posterior cerebral arteries. There is no demonstrated aneurysm of the [place]. There is no major vessel occlusion or hemodynamically significant stenosis. MRI/MRA Head ONLY without Contrast IMPRESSION: Normal MRA of the head Electronically Signed: Luther Huddleston MD at 22:53 EST , Service support ,
--- NOTE | 2020-09-25 16:02 | MRI_ITS ---
STUDY: MRA NECK WITHOUT CONTRAST REASON FOR EXAM: Male, 80 years old. cva, rt side tingling, hx prev stroke TECHNIQUE: Source images were obtained, MIPs were performed. The study was performed unenhanced. COMPARISON: None. FINDINGS: RIGHT CAROTID ARTERIES: Normal right common carotid artery (CCA). Normal right common carotid bulb. Normal origin of the right internal carotid (ICA) artery without a hemodynamically significant stenosis. Normal visualized cervical portion of the right internal carotid artery. Normal origin of the right external carotid artery (ECA). LEFT CAROTID ARTERIES: Normal left common carotid artery (CCA). Normal left common carotid bulb. Normal origin of the left internal carotid (ICA) artery without a hemodynamically significant stenosis. Normal visualized cervical portion of the left internal carotid artery. Normal origin of the left external carotid artery (ECA). VERTEBRAL ARTERIES: Right vertebral is dominant and normal caliber. Left vertebral is hypoplastic terminating in PICA.. MRI/MRA Neck without Contrast IMPRESSION: Normal bilateral cervical carotid and vertebral arteries. Electronically Signed: Luther Huddleston MD at 22:54 EST , Service support ,
--- NOTE | 2020-09-25 16:32 | MRI_ITS ---
ACR Level 3 findings have been noted. An addendum which confirms receipt of the report will follow. STUDY: MRI BRAIN WITHOUT CONTRAST REASON FOR EXAM: Male, 80 years old. Right facial and on tingling. Mild right facial droop. TECHNIQUE: Standardized multiplanar fat and water weighted pulse sequences were obtained. COMPARISON: CT brain without contrast earlier same date. MRI brain 04/15/2009. FINDINGS: Several small acute cortical infarcts extend from the left superior frontal gyrus anteriorly, posteriorly into the parietal lobe, including within the precentral gyrus. Chronic infarcts in the right frontal lobe, right occipital lobe, and left posterior parietal lobe as seen on the recent head CT. Small amount of cortical laminar necrosis in the left chronic posterior parietal infarct. No hemorrhage or mass. No hydrocephalus. Major flow voids preserved. Mild chronic microangiopathic change in the white matter. Calvarium, extracranial soft tissue structures, paranasal sinuses unremarkable. MRI/Brain without Contrast IMPRESSION: Several small acute cortical infarcts extend from the left superior frontal gyrus anteriorly, posteriorly into the parietal lobe, including within the precentral gyrus. Electronically Signed: Tanmay Alonzo MD at 0:29 EST Tel , Service support ,
--- NOTE | 2020-09-25 16:37 | TELEMED_ITS ---
[facility] Telemed has confirmed receipt of a request for visit. This document confirms receipt of the order initiating the consult. To find the results of the consultation, please view the patient's reports for the scanned Telemed Consult.
[2020-09-25 17:11] LABS: Bedside Glucose 227 mg/dL (70-110)
[2020-09-25] MEDS: Insulin Lispro 100 UNIT/ML INSULN.PEN SC ×2 (17:57→22:34)
[2020-09-25] MEDS: 0.9% Normal Saline 1,000 ML 100 ML IV (17:57)
--- NOTE | 2020-09-25 18:40 | HP.PCM_ITS ---
Problem List (1) Stroke Status: Acute (2) HTN (hypertension) Status: Chronic (3) Acute right hip pain Status: Acute (4) Syncope due to orthostatic hypotension Status: Acute (5) Hyperlipemia Status: Chronic (6) Type 2 diabetes mellitus Status: Chronic History of Present Illness Date of Admission: 09/25/20 Mr. Yadav is a 80 year old WM with a PMH of hypertension, hyperlipidemia, DM 2, and history of stroke who presented to the emergency department on 09/25/2020 complaining of tingling that started in his right face and arm approximately 3 days prior he states that today it progressed to the point where his arm felt clumsy and he was having trouble holding onto objects and picking objects up and he is right-handed. His symptoms have not wax or wane during this time. And have persistently worsening and he was concerned today with the lack of resolution that he was suffering from another stroke. He is currently on aspirin therapy alone. He states that he was admitted here for his previous stroke but I am unable to find any information in the system relating to that admission so I suspect he might have been transferred to outside facility. At the present time he states that his arm is feeling a little bit better and is less clumsy although he still feels like it is weak and the sensation is not normal and not right hand. His NIH was 2 on presentation and remains to at this time. His vital signs are stable other than some mild hypertension with systo lic blood pressures in the 150s. His CBC is unremarkable other than some mild thrombocytopenia. His coags are within normal limits. His BMP shows mild hyponatremia 134, mildly elevated BUN and creatinine but this appears to be baseline and a glucose of 353. His troponin was less than 0.015. A CT of his head was performed and showed chronic involutional changes of the brain and stable old infarction involving the right deep frontal region as well as the left posterior parietal occipital lobes. He was admitted to PCU for concern of further stroke. Past Medical History Past Medical History (Chronic Problems): Chronic Problems (Last Reviewed 07/07/20 @ 13:54 by Wilver Romero) HTN (hypertension) (Chronic) Hyperlipemia (Chronic) Type 2 diabetes mellitus (Chronic) Allergies No Known Allergies Allergy (Verified 09/25/20 13:20) Home Medications: Ambulatory Orders Medication Instructions Recorded Aspirin E.C. [Ecotrin] 81 mg PO DAILY@0800 07/20/14 Lisinopril [Zestril] 10 mg PO QHS 07/20/14 glipiZIDE [Glucotrol] 10 mg PO DAILY@0730 07/20/14 glipiZIDE [Glucotrol] 10 mg PO DINNER 07/20/14 Methylphenidate HCl 10 mg PO DAILY 09/25/20 [Methylphenidate HCl ER] Pravastatin [Pravachol] 20 mg PO QHS 09/25/20 Surgical History: no surgical history Psychiatric History: No pertinent psych hx Lives: With Family Smoking Status: Never smoker Alcohol: None Drugs: None - *Family History Paternal History Items: Diabetes Maternal History Items: No pertinent history Review of Systems Constitutional: Denies: Anorexia, Chills, Fever, Night Sweats, Malaise, Weakness, Weight Change, Fatigue Eyes: Denies: Blurred vision, Cataracts, Conjunctivae Inflammation, Double vision, Drainage, Eyelid Inflammation, Pain, Redness, Vision Change HEENT: Denies: Difficulty Hearing, Difficulty Swallowing, Dysphasia, Ear Pain, Eye Pain, Hard of Hearing, Head Aches, Hearing Changes, Nasal bleeding, Nasal Congestion, Post Nasal Drip, Sinus Congestion, Sinus Drainage, Sore Throat, Visual Changes Cardiovascular: Denies: Chest Pain, Claudication, Chest Pressure, Chest Tightness, Edema, Heaviness, Light Headedness, Orthopnea, Palpitations, Paroxysmal Noc. Dyspnea, Syncope Respiratory: Denies: Cough, Hemoptysis, Pleuritic Pain, Shortness of Breath, Shortness of breath at rest, Shortness of breath upon exertion, Sputum production, Wheezing Gastrointestinal: Denies: Abdominal Pain, Constipation, Diarrhea, Dyspepsia, Hematemesis, Hematochezia, Nausea, Melena, Vomiting Genitourinary: Denies: Dysuria, Frequency, Hematuria, Hesitancy, Incontinence, Nocturia, Retention, Urgency Musculoskeletal: Denies: Back Pain, Hand Pain, Joint stiffness, Joint swelling, Joint Tenderness, Muscle pain, Neck Pain Skin: Denies: Dryness, Jaundice, Lesions, Pruritis, Rash, Skin Changes, Wounds Neurological: Reports: Change in Speech - Earlier but this has resolved, Focal weakness, Incoordination - Right upper extremity/hand, Numbness - Right hand, Tingling - Hand. Denies: Balance problems, Blurred vision, Double vision, Slurred speech, Confusion, Difficulty swallowing, Headaches, Tremor, Seizures Psychiatric: Denies: Anxiety, Depression Endocrine: Denies: Change in Body Habitus, Heat/ Cold Intolerance, Polydipsia, Polyuria Hematologic/ Lymphatic: Denies: Adenopathy, Anemia, Easy Bruising, Easy Bleeding, Petechiae, Purpura VTE Information - Inpt Only VTE Present on Admission: No VTE Mechan Device Prophylaxis: SCD's VTE Pharm Prophylaxis ordered?: Yes - Physical Exam Vitals/I&O's: Vital Signs Temp Pulse Resp BP Pulse Ox 97.5 F L 82 16 152/99 H 96 09/25/20 16:10 09/25/20 16:10 09/25/20 16:10 09/25/20 16:10 09/25/20 16:10 Oxygen Flow Rate (L/min) 2 Oxygen Delivery Method Room Air Weight: 67.5 kg Body Mass Index (BMI) 25.5 General: Alert, Oriented x3, Cooperative, No apparent distress, Well developed, Well nourished, - - Pleasant elderly white male, sitting up in bed, appears comfortable HEENT: Atraumatic, PERRLA, EOMI, Normocephalic, EAC Clear Oral: Moist Mucosa, No Gingival or Mucosal Lesions/ Ulcerations, - - Potty 2, poor dentition Neck: Supple, No JVD, Negative Carotid Bruits, Negative Hepatojugular Reflux, No Nodes, No Nuchal Rigidity, Trachea Midline, Thyroid Normal Size and Texture Lungs: Clear to auscultation, Normal air movement, No rhonchi, No wheeze, No rales Cardiovascular: Regular rate, Regular Rhythm, Normal S1, Normal S2, No murmurs, No Ectopic Activity, No rub noted, No Gallop Abdomen: Bowel Sounds Present, Soft, Non Tender, Non-Distended, No hernias noted Extremities: No clubbing, No cyanosis, No edema, Capillary Refill Less than 3 Seconds, Diminished Peripheral Pulses Skin: No rashes, No breakdown Musculoskeletal: No Tenderness to Palpation of Joints or Extremities, No Muscle Wasting, Arthritic Changes Lymphatic: No Cervical, Supraclavicular, or Inguinal Adenopathy Neurological: Cranial nerves II-XII grossly intact, Deep Tendon Reflexes 2+/4 and Symmetrical, Muscle tone normal, - - Decreased sensation in the right hand from the wrist down, 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 are within normal limits, elbow flexion and extension are within normal limits, shoulder strength is 4 out of 5 bilaterally, patient does have some difficulty manipulating his Psych/Mental Status: Normal Affect, Appropriate Laboratory Results 09/25/20 13:40: WBC 7.5, RBC 4.39 L, Hgb 15.2, Hct 41.5, MCV 94.5 H, MCH 34.6 H, MCHC 36.6 H, RDW Std Deviation 41.6, RDW Coeff of Lesly 12.0, Plt Count 141 L, MPV 12.0, Immature Gran % (Auto) 0.700, Neut % (Auto) 67.9, Lymph % (Auto) 18.9 L, [place] % (Auto) 9.1, Eos % (Auto) 2.5, Baso % (Auto) 0.9, Absolute Neuts (auto) 5.1, Absolute Lymphs (auto) 1.42, Nucleated RBC % 0 09/25/20 13:40: PT 12.3, INR 1.0, APTT 22.6 L 09/25/20 13:40: Sodium 134 L, Potassium 4.7, Chloride 101, Carbon Dioxide 26.0, Anion Gap 7, BUN 28 H, Creatinine 1.38 H, Estim Creat Clear Calc 37.24, Est GFR (MDRD) Af Amer 63, Est GFR (MDRD) Non-Af 52 L, BUN/Creatinine Ratio 20.3 H, Glucose 353 H, Calcium 9.7, Troponin I < 0.015 09/25/20 17:05: POC Glucose 227 H Current Medications Aspirin (Aspirin E.C. 81 Mg Tablet) 81 mg PO DAILY@0800 [facility] Dextrose (Dextrose 50%-Water 25 Gm/50 Ml Disp.Syrin) 0 gm IV X1 PRN; Protocol PRN Reason: Hypoglycemia Glucagon (Glucagon 1 Mg/Ml Syringe) 1 mg IM .X1 PRN PRN Reason: Hypoglycemia Hydralazine HCl (Hydralazine 20 Mg/Ml Vial) 5 mg IV Q30M PRN PRN Reason: to maintain BP goals Sodium Chloride () 1,000 mls @ 100 mls/hr IV .Q10H IDANIA Stop: 09/26/20 02:01 Last Admin: 09/25/20 17:57 Dose: 100 mls/hr Documented by: Sodium Chloride () 250 mls @ 15 mls/hr IV .[id number] PRN PRN Reason: Saline Flush Sodium Chloride () 250 mls @ 15 mls/hr IV .[id number] PRN PRN Reason: Additional IVPB Infusion Influenza Virus Vaccine Quadrival (Influenza Vaccine (6mos+)/Pf 0.5 Ml Syringe) 0.5 ml IM .ONCE ONE Stop: 09/26/20 10:01 Insulin Glargine (Insulin Glargine 100 Units/Ml Pen) 10 units SC DINNER IDANIA Last Admin: 09/25/20 17:56 Dose: 10 units Documented by: Insulin Human Lispro (Insulin Lispro 100 Unit/Ml Insuln.Pen) 0 unit SC ACHS [facility]; Protocol Last Admin: 09/25/20 17:57 Dose: 2 units Documented by: Labetalol HCl (Labetalol (Prefilled) 20 Mg/4 Ml) 10 - 20 mg IV Q10M PRN PRN PRN Reason: to Maintain BP Goals Lisinopril (Lisinopril 10 Mg Tablet) 10 mg PO QHS IDANIA Pravastatin Sodium (Pravastatin 20 Mg Tablet) 20 mg PO QHS IDANIA Sodium Chloride (0.9% Saline Lock 10 Ml Syringe) 10 - 40 ml IV UD PRN PRN Reason: SALINE FLUSH Assessment/Plan All Active Problems (Last Reviewed 07/07/20 @ 13:54 by Wilver Romero) Stroke (Acute) Strain of right inguinal region (Acute) Acute right hip pain (Acute) Syncope due to orthostatic hypotension (Acute) Suspected acute ischemic stroke with history of stroke -CT head in the emergency department showed no acute changes -Obtain MRI and MRA of head and neck -Continue aspirin -Continue statin but switch to Lipitor 80 mg -Check lipids in a.m. -Check hemoglobin A1c -No need for repeat echocardiogram as patient had one on 06/09/2020 that showed an EF of 70% and mild mitral valve insufficiency -Would recommend outpatient event monitor at discharge -Consult SOC for neurology evaluation--> and Plavix DM-2 -Suspect blood sugars are not controlled at baseline as blood sugar in the emergency department was greater than 300 -Hold oral antihyperglycemic's -Start insulin 10 units at night -SSI before meals and at bedtime -Blood glucose before meals and at bedtime -A1c pending for a.m. Hypertension -continue home lisinopril -May need up titration or additional medications if blood pressure remains elevated -Monitor Hyperlipidemia -Check lipids -Hold Pravachol start Lipitor 80 mg for pleiotropic effect Pseudohyponatremia -This should resolve once blood sugars corrected CKD stage III -Serum creatinine appears at baseline -Unsure creatinine DVT prophylaxis -Heparin 3 times daily CODE STATUS -Full Inpatient E&M: [id number] Init Hosp L3
[2020-09-25] MEDS: Lisinopril 10 MG Tablet PO (22:35)
[2020-09-25 22:40] LABS: Bedside Glucose 249 mg/dL (70-110)
[2020-09-25] MEDS: Heparin Injection (Vial) 5,000 UNIT/ML VIAL 5000 UNIT SC (22:43)
[2020-09-25] MEDS: Atorvastatin Calcium 80 MG Tablet PO (22:43)
[2020-09-26] VITALS (9 sets, daily range): BP systolic 133–155; BP diastolic 59–84; PULSE 74–92; RESP 16–18; TEMP 36.7–36.9; O2SAT 92–96
[2020-09-26 05:24] LABS: Absolute Lymphocyte Count 2.01 X10^3/uL (0.83-4.51); Absolute Neutrophil Count 4.3 X10^3/uL (2.0-7.7); Basophil# 0.05 X10^3/uL; Basophil% 0.7 % (0-1); Eosinophil# 0.19 X10^3/uL; Eosinophils% 2.6 % (0-5); Hematocrit 37.4 % (40-54); Lymphocyte # 2.01 X10^3/ul (4.0); Lymphocyte % 27.8 % (19-41); Mean Corp Hgb Conc 34.8 g/dL (32-36); Mean Corpuscular Hgb 33.7 pg (27.0-32.0); Mean Corpuscular Volume 96.9 fL (80-94); Mean Platelet Vol. 11.1 fl (6.2-12.0); Monocyte% 9.7 % (0-10); NRBC Flagged by Analyzer 0 % (0-5); Neutrophil # 4.26 X10^3/uL (2.7-7.7); Neutrophil % 58.8 % (47-70); Platelet Count 112 K/mm3 (150-450); RBC Distribution Width CV 12.3 % (11.6-14.6); RBC Distribution Width SD 42.8 fl (35.1-43.9); Red Blood Count 3.86 M/mm3 (4.6-6.2); White Blood Count 7.2 K/mm3 (4.4-11.0)
[2020-09-26 05:54] LABS: Anion Gap 6 (5-15); BUN 24 mg/dL (7-18); BUN/Creat Ratio 20.5 RATIO (10-20); Calcium,Total 9.1 mg/dL (8.5-10.1); Chloride 105 mmol/L (98-107); Cholesterol 187 mg/dL (200); Creatinine, Serum 1.17 mg/dL (0.70-1.30); EST Glomerular Filtration Rate 63 mL/min (>60); Est Glom Filt Rate - Afr Amer 77 mL/min (>60); Estimated Creatinine Clearance 40.76 ml/min; Glucose 133 mg/dL (74-106); High Density Lipoprotein 51 mg/dL; Potassium 4.1 mmol/L (3.5-5.1); Sodium Level 139 mmol/L (136-145); Triglycerides 311 mg/dL; Very Low Density Lipoprotein 62 mg/dL (5-40)
[2020-09-26] MEDS: Heparin Injection (Vial) 5,000 UNIT/ML VIAL 5000 UNIT SC (06:50)
[2020-09-26 06:56] LABS: Bedside Glucose 149 mg/dL (70-110)
[2020-09-26 08:20] LABS: Hemoglobin A1c 11.3 % (3.8-5.6)
[2020-09-26] MEDS: 0.9% Saline Lock 10 ML Syringe IV (09:18)
[2020-09-26] MEDS: Aspirin E.C. 81 MG Tablet PO (09:18)
--- NOTE | 2020-09-26 10:23 | CASEMGMT ---
SW completed a PHQ 9 with patient as he had a Stroke. He scored a 4 which indicates minimal depression. He was open to counseling resources. SW went to his insurance website and printed a list of counselors and agencies that are in network with his insurance. List was given to patient. Deirdre MORA MSW
--- NOTE | 2020-09-26 11:44 | CASEMGMT ---
BLADIMIR MOCTEZUMA assessment: Face to Face with patient for initial transition planning/care coordination assessment. BLADIMIR MOCTEZUMA introduced self and role at [facility], pt voices understanding and consents to assessment at this time. Pt is sitting up in chair in no distress at this time. Pt is A/Ox4 at this time and answers all questions appropriately at this time. Care providers, pharmacy, and demographics verified at this time. Presentation: Pt reports right sided weakness, tingling, and numbness to right side of face, with facial droop for a week Admitting dx: CVA PCP: Shannen Specialists: Pt states no current specialists. [facility]erred [facility] Insurance: [employer] Prescription Benefit: AnthR Living Will/HPOA: Pt states has LW/HPOA and is aware that it's no on file at [facility] at this time. Pt states his , Audra Yadav, is HPOA. LNOK: Audra Yadav, Living Arrangements: Pt states lives with in 1 story home with a couple steps in and states no concerns at home at this time. Pt states is independent with ADL's. Transportation: Pt states his has driven him since he had a CVA in the summer and states no transportation concerns at this time. DME/HHC: Pt states has the following DME but does not normally use: cane, walker and grab bars. Pt states no need for any further DME at this time. Pt states no hx of HHC or SNF in the past. Pt is interested in OP therapy at [facility] at this time. Pt states no concerns with going home at time of discharge. Pt states is retired. Pt states does not smoke or drink ETOH. Pt states no further concerns/needs at this time. CM to follow for any further discharge planning/needs. Advised pt to ask for CM if any further questions/concerns/needs arise, voices understanding. Pt Goal: Home w/ OP therapy. Plan: Home w/ OP therapy. [place] BLADIMIR MOCTEZUMA
[2020-09-26 12:01] LABS: Bedside Glucose 327 mg/dL (70-110)
[2020-09-26] MEDS: Insulin Lispro 100 UNIT/ML INSULN.PEN SC (12:18)
--- NOTE | 2020-09-26 14:08 | PCM.DC ---
- Discharge Diagnoses Current Active Problems: Current Active and Chronic Problems (Last Reviewed 07/07/20 @ 13:54 by Wilver Romero) Stroke (Acute) HTN (hypertension) (Chronic) Acute right hip pain (Acute) Syncope due to orthostatic hypotension (Acute) Hyperlipemia (Chronic) Type 2 diabetes mellitus (Chronic) You will use the following diet at home:: Calorie/Carbohydrate Controlled (specify 1200, 1400, etc) - 1800, Cardiac Your food should be the consistency of: Regular Your liquids should be the consistency of: Regular/Thin Discharge Activity: Return to Normal Activity Call your doctor if you observe: - - unilateral weakness. difficulty speaking. slurred speech. Instructions: Symptoms of Stroke, What Is Ischemic Stroke?, Stroke: Taking Medications, Using a Blood Sugar Log, Hyperglycemia (High Blood Sugar), What Is Type 2 Diabetes?, Using Injected Insulin, Types of Insulin, Healthy Meals for Diabetes, Diabetes: Understanding Carbohydrates, Diabetes: Keeping Feet Healthy, Diabetes: Inspecting Your Feet, Diabetes: Sick-Day Plan Allergies/Adverse Reactions: Allergies No Known Allergies Allergy (Verified 09/25/20 13:20) Medications to take at Discharge Aspirin E.C. [Ecotrin] 81 mg PO DAILY@0800 07/20/14 Lisinopril [Zestril] 10 mg PO QHS 07/20/14 glipiZIDE [Glucotrol] 10 mg PO DAILY@0730 07/20/14 glipiZIDE [Glucotrol] 10 mg PO DINNER 07/20/14 Atorvastatin Calcium 40 mg PO QHS #30 tab 09/26/20 Clopidogrel Bisulfate [Clopidogrel] 75 mg PO DAILY #21 tab 09/26/20 Insulin Aspart [Novolog Flexpen (BKC)] 3 units SC TIDCM #1 flexpen 09/26/20 Insulin Glargine [Lantus SoloStar Pen] 12 units SC DINNER #1 pen 09/26/20 [place], Insulin Disposable [Novofine Autocover 30G Needle] 1 ea SQ UD #1 box 09/26/20 The following prescriptions were given: Atorvastatin Calcium 40 mg PO QHS #30 tab Transmission Status: Pending to [facility] Clopidogrel Bisulfate [Clopidogrel] 75 mg PO DAILY #21 tab Transmission Status: Pending to [id number] Insulin Glargine [Lantus SoloStar Pen] 12 units SC DINNER #1 pen Transmission Status: Pending to [facility] [place], Insulin Disposable [Novofine Autocover 30G Needle] 1 ea SQ UD #1 box Transmission Status: Pending to [facility] Insulin Aspart [Novolog Flexpen (BKC)] 3 units SC TIDCM #1 flexpen Transmission Status: Pending to [facility] Orders to be completed after discharge: 30-Day Event Recorder [[facility]] Location: None Selected Glucometer Location: None Selected Primary Care Physician: Castillo Pride DO [Primary Care Provider] - Within 2 Weeks Test Results: Test results from this visit will be discussed in further detail at your follow-up appointment, if applicable. Please Follow Up With: Chriss Berry MD - neurology When: 1-2 months Please Follow Up With: Physical therapy When: 1-2 weeks Proposed Discharge Date: 09/26/20
--- NOTE | 2020-09-26 14:12 | DS.PCM_ITS ---
Discharge Date and Diagnosis - Problem List Patient Problems: Active and Suspected Problems (Last Reviewed 07/07/20 @ 13:54 by Wilevr Romero) Stroke (Acute) Acute right hip pain (Acute) Syncope due to orthostatic hypotension (Acute) Date of Admission: 09/25/20 Date of Discharge: 09/26/20 - Primary Discharge Diagnosis Acute Problems: Active Problems (Last Reviewed 07/07/20 @ 13:54 by Wilver Romero) Stroke (Acute) Acute right hip pain (Acute) Syncope due to orthostatic hypotension (Acute) - Secondary Discharge Diagnosis Chronic Problems: Chronic Problems (Last Reviewed 07/07/20 @ 13:54 by Wilver Romero) HTN (hypertension) (Chronic) Hyperlipemia (Chronic) Type 2 diabetes mellitus (Chronic) Hospital Course and Treatment Imaging Results: Clinical Impression(s) from Imaging Studies Brain CT 09/25/20 13:51 IMPRESSION: Chronic involutional changes of the brain. Stable old infarctions involving the right deep frontal region as well as the left posterior parietal occipital lobes. N.B. : The above information has been verbally conveyed by Ubaldo Lozada MD to Josesito Fontanez on 09/25/2020 14:18:09 (ET). Electronically Signed: Ubaldo Lozada MD at 14:19 EST , Service support , ADDENDUM: 09/25/20 1426 IMPRESSION: Chronic involutional changes of the brain. Stable old infarctions involving the right deep frontal region as well as the left posterior parietal occipital lobes. N.B. : The above information has been verbally conveyed by Ubaldo Lozada MD to Josesito Fontanez on 09/25/2020 14:18:09 (ET). Electronically Signed: Ubaldo Lozada MD at 14:19 EST , Service support , Chest X-Ray 09/25/20 14:15 IMPRESSION: Stable examination. No acute abnormality is seen. Electronically Signed: Ubaldo Lozada MD at 14:36 EST , Service support , Head MRA 09/25/20 16:02 IMPRESSION: Normal MRA of the head Electronically Signed: Luther Huddleston MD at 22:53 EST , Service support , Neck MRA 09/25/20 16:02 IMPRESSION: Normal bilateral cervical carotid and vertebral arteries. Electronically Signed: Luther Huddleston MD at 22:54 EST , Service support , Brain MRI 09/25/20 16:32 IMPRESSION: Several small acute cortical infarcts extend from the left superior frontal gyrus anteriorly, posteriorly into the parietal lobe, including within the precentral gyrus. Electronically Signed: Tanmay Alonzo MD at 0:29 EST Tel , Service support , ADDENDUM: 09/26/20 0045 IMPRESSION: Several small acute cortical infarcts extend from the left superior frontal gyrus anteriorly, posteriorly into the parietal lobe, including within the precentral gyrus. N.B. : Mary Clements RN, confirmed on 09/26/2020 00:38:22 (ET) that the healthcare facility has received the radiology report. Electronically Signed: Tanmay Alonzo MD at 0:29 EST Tel , Service support , [facility] teleneurology Operations: None Procedures: None Summary of Care Provided: The patient is a 80 year old M presents on September 25 complaining of tingling involving his right face and right arm. Began 3 days prior to presentation. Patient underwent a stroke work-up. MRI showed several small acute cortical infarcts extending to the left superior frontal, gyrus anteriorly, posteriorly into the parietal lobe, including within the precentral gyrus. Patient was seen by [facility] teleneurology who was concerned for this being embolic he recommended further evaluation for atrial fibrillation. Patient will have a 30-day event monitor upon discharge. Patient had no evidence of atrial fibrillation. Patient does have a first-degree AV block but no evidence of any atrial fibrillation or atrial flutter. Neurology recommended continuing the patient's aspirin but also combined with 21 days of clopidogrel and continue with high intensity statin. Will adjust a high intensity statin to 40 mg of atorvastatin daily given the patient's age. Patient also presented with uncontrolled diabetes. Blood sugar was 353 upon arrival. A1c was 11.9. Patient will be discharged with 12 mg of insulin glargine as well as 3 units of NovoLog with meals. [] Patient Problems: Active and Suspected Problems (Last Reviewed 07/07/20 @ 13:54 by Wilver Romero) Stroke (Acute) Acute right hip pain (Acute) Syncope due to orthostatic hypotension (Acute) - Physical Exam Vitals/I&O's: Vital Signs Temp Pulse Resp BP Pulse Ox 36.7 C 92 16 151/79 H 96 09/26/20 12:00 09/26/20 12:00 09/26/20 12:00 09/26/20 12:00 09/26/20 12:00 Oxygen Flow Rate (L/min) 2 Oxygen Delivery Method Room Air Weight: 67.5 kg Body Mass Index (BMI) 25.5 Intake and Output for Last 24 Hours 09/24/20 09/25/20 09/26/20 23:59 23:59 23:59 Intake Total 360 / 560 2119 / 2119 Balance 360 / 560 2119 General: Alert, No apparent distress HEENT: Atraumatic, Normocephalic Oral: Moist Mucosa, No Gingival or Mucosal Lesions/ Ulcerations Neck: No Nodes, Thyroid Normal Size and Texture Lungs: Clear to auscultation, Normal air movement, No rhonchi, No wheeze, No rales Cardiovascular: Regular rate, Regular Rhythm, Normal S1, Normal S2, No murmurs Abdomen: Bowel Sounds Present, Soft, Non Tender, Non-Distended, No Hepato- splenomegaly Extremities: No edema, No Calf Tenderness Skin: No rashes, No breakdown Musculoskeletal: No Tenderness to Palpation of Joints or Extremities, No Muscle Wasting Neurological: - - Strength slightly weaker on the right as compared to left in the upper extremities. Laboratory Results 09/25/20 13:40: WBC 7.5, RBC 4.39 L, Hgb 15.2, Hct 41.5, MCV 94.5 H, MCH 34.6 H, MCHC 36.6 H, RDW Std Deviation 41.6, RDW Coeff of Lesly 12.0, Plt Count 141 L, MPV 12.0, Immature Gran % (Auto) 0.700, Neut % (Auto) 67.9, Lymph % (Auto) 18.9 L, Sierra % (Auto) 9.1, Eos % (Auto) 2.5, Baso % (Auto) 0.9, Absolute Neuts (auto) 5.1, Absolute Lymphs (auto) 1.42, Nucleated RBC % 0 09/25/20 13:40: PT 12.3, INR 1.0, APTT 22.6 L 09/25/20 13:40: Sodium 134 L, Potassium 4.7, Chloride 101, Carbon Dioxide 26.0, Anion Gap 7, BUN 28 H, Creatinine 1.38 H, Estim Creat Clear Calc 37.24, Est GFR (MDRD) Af Amer 63, Est GFR (MDRD) Non-Af 52 L, BUN/Creatinine Ratio 20.3 H, Glucose 353 H, Calcium 9.7, Troponin I < 0.015 09/25/20 17:05: POC Glucose 227 H 09/25/20 22:32: POC Glucose 249 H 09/26/20 05:14: Sodium 139, Potassium 4.1, Chloride 105, Carbon Dioxide 28.0, Anion Gap 6, BUN 24 H, Creatinine 1.17, Estim Creat Clear Calc 40.76, Est GFR (MDRD) Af Amer 77, Est GFR (MDRD) Non-Af 63, BUN/Creatinine Ratio 20.5 H, Glucose 133 H, Calcium 9.1, Triglycerides 311 H, Cholesterol 187, LDL Cholesterol 74, VLDL Cholesterol 62 H, HDL Cholesterol 51 09/26/20 05:14: Hemoglobin A1c 11.3 H 09/26/20 05:14: WBC 7.2, RBC 3.86 L, Hgb 13.0, Hct 37.4 L, MCV 96.9 H, MCH 33.7 H, MCHC 34.8, RDW Std Deviation 42.8, RDW Coeff of Lesly 12.3, Plt Count 112 L, MPV 11.1, Immature Gran % (Auto) 0.400, Neut % (Auto) 58.8, Lymph % (Auto) 27.8, Sierra % (Auto) 9.7, Eos % (Auto) 2.6, Baso % (Auto) 0.7, Absolute Neuts (auto) 4.3, Absolute Lymphs (auto) 2.01, Nucleated RBC % 0 09/26/20 06:46: POC Glucose 149 H 09/26/20 11:54: POC Glucose 327 H Current Medications Aspirin (Aspirin E.C. 81 Mg Tablet) 81 mg PO DAILY@0800 [facility] Last Admin: 09/26/20 09:18 Dose: 81 mg Documented by: Atorvastatin Calcium (Atorvastatin Calcium 80 Mg Tablet) 80 mg PO QHS [facility] Last Admin: 09/25/20 22:43 Dose: 80 mg Documented by: Dextrose (Dextrose 50%-Water 25 Gm/50 Ml Disp.Syrin) 0 gm IV X1 PRN; Protocol PRN Reason: Hypoglycemia Glucagon (Glucagon 1 Mg/Ml Syringe) 1 mg IM .X1 PRN PRN Reason: Hypoglycemia Heparin Sodium (Porcine) (Heparin Injection (Vial) 5,000 Unit/Ml Vial) 5,000 unit SC Q8 [facility] Last Admin: 09/26/20 06:50 Dose: 5,000 unit Documented by: Hydralazine HCl (Hydralazine 20 Mg/Ml Vial) 5 mg IV Q30M PRN PRN Reason: to maintain BP goals Sodium Chloride () 250 mls @ 15 mls/hr IV .[id number] PRN PRN Reason: Saline Flush Sodium Chloride () 250 mls @ 15 mls/hr IV .[id number] PRN PRN Reason: Additional IVPB Infusion Insulin Glargine (Insulin Glargine 100 Units/Ml Pen) 10 units SC DINNER [facility] Last Admin: 09/25/20 17:56 Dose: 10 units Documented by: Insulin Human Lispro (Insulin Lispro 100 Unit/Ml Insuln.Pen) 0 unit SC ACHS [facility]; Protocol Last Admin: 09/26/20 12:18 Dose: 5 units Documented by: Labetalol HCl (Labetalol (Prefilled) 20 Mg/4 Ml) 10 - 20 mg IV Q10M PRN PRN PRN Reason: to Maintain BP Goals Lisinopril (Lisinopril 10 Mg Tablet) 10 mg PO QHS [facility] Last Admin: 09/25/20 22:35 Dose: 10 mg Documented by: Sodium Chloride (0.9% Saline Lock 10 Ml Syringe) 10 - 40 ml IV UD PRN PRN Reason: SALINE FLUSH Last Admin: 09/26/20 09:18 Dose: 10 ml Documented by: Discharge Diet: Low fat/ Low Cholesterol Discharge Activity: Return to Normal Activity Call your doctor if you observe: - - unilateral weakness. difficulty speaking. slurred speech. Home Medications: Medications to take at Discharge Aspirin E.C. [Ecotrin] 81 mg PO DAILY@0800 07/20/14 Lisinopril [Zestril] 10 mg PO QHS 07/20/14 glipiZIDE [Glucotrol] 10 mg PO DAILY@0730 07/20/14 glipiZIDE [Glucotrol] 10 mg PO DINNER 07/20/14 Atorvastatin Calcium 40 mg PO QHS #30 tab 09/26/20 Clopidogrel Bisulfate [Clopidogrel] 75 mg PO DAILY #21 tab 09/26/20 Insulin Aspart [Novolog Flexpen (BKC)] 3 units SC TIDCM #1 flexpen 09/26/20 Insulin Glargine [Lantus SoloStar Pen] 12 units SC DINNER #1 pen 09/26/20 [place], Insulin Disposable [Novofine Autocover 30G Needle] 1 ea SQ UD #1 box 09/26/20 Following Prescriptions Were Given to Patient: Atorvastatin Calcium 40 mg PO QHS #30 tab Transmission Status: Pending to [facility] Clopidogrel Bisulfate [Clopidogrel] 75 mg PO DAILY #21 tab Transmission Status: Pending to [id number] Insulin Glargine [Lantus SoloStar Pen] 12 units SC DINNER #1 pen Transmission Status: Pending to [facility] [place], Insulin Disposable [Novofine Autocover 30G Needle] 1 ea SQ UD #1 box Transmission Status: Pending to [facility] Insulin Aspart [Novolog Flexpen (BKC)] 3 units SC TIDCM #1 flexpen Transmission Status: Pending to [facility] Other Amb Orders: 30-Day Event Recorder [[facility]] Location: None Selected Glucometer Location: None Selected Primary Care Physician: Castillo Pride DO [Primary Care Provider] - Within 2 Weeks Please Follow Up With: Chriss Berry MD - neurology When: 1-2 months Please Follow Up With: Physical therapy When: 1-2 weeks Patient Instructions: Using a Blood Sugar Log, Hyperglycemia (High Blood Sugar), What Is Type 2 Diabetes?, Using Injected Insulin, Types of Insulin, Healthy Meals for Diabetes, Diabetes: Understanding Carbohydrates, Diabetes: Keeping Feet Healthy, Diabetes: Inspecting Your Feet, Diabetes: Sick-Day Plan, Symptoms of Stroke, What Is Ischemic Stroke?, Stroke: Taking Medications Disposition: Home Minutes spent on discharge:: 35 Patient Condition:: Fair Medical Necessity - Tobacco Use Smoking Status: Never smoker Meaningful Use Info Meaningful Use Diagnoses (Choose all that apply): Ischemic CVA - CVA Therapy Assessed for PT,OT and/or ST?: Yes - Ischemic Stroke Antithrombotic order at d/c?: Yes Dx of Atrial fib/flutter?: No Anticoagulant at discharge?: No Reason anticoagulant not ordered: Treatment not Indicated Statins at discharge?: Yes Primary Dx Acute Ischemic CVA?: Yes IV tPA ordered during stay?: No Reason IV t-PA not ordered: Treatment not Indicated Inpatient E&M: 51671 Disch Hosp
--- NOTE | 2020-09-26 14:17 | CASEMGMT ---
OP therapy order obtained and faxed to [facility] at this time. Original to pt's at this time and aware they should call them in the next 24-48 hours. Pt/ voice no further questions/concerns/needs at this time. Arnol GARRISON CM
--- NOTE | 2020-09-26 15:24 | PHA.DC.MC ---
Pharmacy Service has performed discharge medication reconciliation and counseling for this patient. 1. ATORVASTATIN 40MG PO QHS 2. CLOPIDOGREL 75MG PO DAILY X 21 DAYS 3. NOVOLOG 3UNTIS SC TIDCM 4. LANTUS 15UNITS SC DINNER The patient's discharge medication list was reviewed for discrepancies and discrepancies were resolved. Home Medications Aspirin E.C. [Ecotrin] 81 mg PO DAILY@0800 07/20/14 Lisinopril [Zestril] 10 mg PO QHS 07/20/14 glipiZIDE [Glucotrol] 10 mg PO DAILY@0730 07/20/14 glipiZIDE [Glucotrol] 10 mg PO DINNER 07/20/14 Atorvastatin Calcium 40 mg PO QHS #30 tab 09/26/20 Clopidogrel Bisulfate [Clopidogrel] 75 mg PO DAILY #21 tab 09/26/20 Insulin Aspart [Novolog Flexpen (BKC)] 3 units SC TIDCM #1 flexpen 09/26/20 Insulin Glargine [Lantus SoloStar Pen] 12 units SC DINNER #1 pen 09/26/20 [place], Insulin Disposable [Novofine Autocover 30G Needle] 1 ea SQ UD #1 box 09/26/20 The patient was counseled on the following discharge medications and changes in medications for homegoing were reviewed. The Reason for Use, instructions for use, and potential side effects were reviewed for all new medications. The patient's questions regarding all of their medications were answered. The patient was able to verbally demonstrate an understanding of their discharge medications. Patient counseled by retail pharmacy technician, [employer].
== END 2020-09-26 16:51 | disposition home or self-care (01) | DRG 65 ==
LOC: ED 14:32 → PCU 09-26 07:21
PROVIDERS: Admitting Provider Internal Medicine; Emergency Provider Emergency Medicine; PCP Family Medicine
DX: I63.9 Cerebral infarction, unspecified (principal); E87.1 Hypo-osmolality and hyponatremia; M25.551 Pain in right hip; Z23 Encounter for immunization; E78.5 Hyperlipidemia, unspecified; I12.9 Hypertensive chronic kidney disease with stage 1 through stage 4 chronic kidney disease, or unspecified chronic kidney disease; N18.30 Chronic kidney disease, stage 3 unspecified; E11.22 Type 2 diabetes mellitus with diabetic chronic kidney disease; D69.6 Thrombocytopenia, unspecified; I44.0 Atrioventricular block, first degree
CPT/HCPCS: 70450; 70544; 70547; 70551; 71045; 80048; 80061; 82962; 83036; 84484; 85025; 85610; 85730; 92523; 92610; 93005; 94762; 97162; 97166; 97802; 99285; G0008; J7030; 90686; A4216

== ENCOUNTER 2020-09-27 14:22 | Emergency (ER) | payer MEDICARE, SELFPAY ==
[2020-09-25 16:30] VITALS: BMI 25.5
[2020-09-27] VITALS (8 sets, daily range): BP systolic 126–176; BP diastolic 63–76; PULSE 72–98; RESP 14–18; TEMP 36.1–36.7; O2SAT 96–98; BMI 21.9; BMI 22.5
--- NOTE | 2020-09-27 14:31 | CT_ITS ---
STUDY: CT BRAIN WITHOUT CONTRAST REASON FOR EXAM: Male, 80 years old. WEAKNESS/CVA RADIATION DOSAGE (If Supplied By Facility): CTDIvol = ( 44.99 ) mGy, DLP = ( 812.98 ) mGycm TECHNIQUE: Transaxial CT imaging of the brain was performed without administration of intravenous contrast material. Individualized dose optimization techniques were used for this CT. COMPARISON: Comparison is made with prior study dated 09/25/2020. FINDINGS: Normal soft tissue structures. Normal calvarium. There is mild cerebral atrophy with widening of the extra-axial spaces and ventricular dilatation. There are areas of decreased attenuation within the white matter tracts of the supratentorial brain, consistent with microvascular disease changes. Stable encephalomalacia involving the left posterior parietal occipital lobes as well as the right frontal lobe. Normal basal ganglia and thalami. Normal brainstem. Normal cerebellum. There is no intracranial hemorrhage. There are no findings of an acute ischemic infarction. Atherosclerotic calcification of the vertebral arteries as well as the cavernous portions of the internal carotid arteries bilaterally. Normal visualized paranasal sinuses. CT/Brain/Head without Contrast IMPRESSION: Chronic involutional changes of the brain. Electronically Signed: Ubaldo Lozada MD at 14:58 EST , Service support ,
--- NOTE | 2020-09-27 14:31 | EKG12_ITS ---
Test Reason : NEURO S/SX Blood Pressure : / mmHG Vent. Rate : 081 BPM Atrial Rate : 081 BPM P-R Int : 280 ms QRS Dur : 080 ms QT Int : 350 ms P-R-T Axes : 042 018 030 degrees QTc Int : 406 ms Sinus rhythm with 1st degree A-V block Low voltage QRS (Limb Leads) Confirmed by ARCENIO GARCIA, CARLIE ([id number]), purchase request editor PARVIZ HARRIS ([id number]) on 09/29/2020 11:12:27 AM Referred By: JUAN Confirmed By:CARLIE RG MD
--- NOTE | 2020-09-27 14:37 | ED.VISSUMM ---
- ER Visit Summary Date of Service: 09/27/20 Chief Complaint: Possible stroke History of Present Illness: The patient is a 80 M who presents with possible stroke that began today. EMS was called because the patient was acting confused and abnormal earlier today. This resolved upon their arrival. Patient refused transport at that time. EMS was called back because of right upper extremity weakness. EMS states the patient's right hand was weak. Currently, patient denies any weakness. Patient states he was recently admitted for stroke which caused right facial weakness. Patient states this has been persistent. Patient denies any headaches. Patient denies any chest pain or shortness of breath. Patient denies any nausea or vomiting. Patient denies any other symptoms. Physical Examination: Vital signs are stable except for an elevated blood pressure 176/76. Patient is afebrile. Patient is in no acute distress. Cranial nerves II through XII are intact except for right lower facial weakness. Forehead wrinkling is intact. Pupils are equal, round, and reactive to light bilaterally. Extraocular muscles are intact. Strength is 5/5 bilateral in the upper and lower extremities. There are no sensory deficits noted. Neck is supple. Trachea is midline. There is no JVD. Heart was regular rate and rhythm. Lungs are clear and equal bilaterally. Abdomen is soft. Bowel sounds are normal. There is no tenderness. Extremities are intact. There is no calf tenderness or edema. Test Results: EKG was obtained. On my interpretation there is normal sinus rhythm with a first-degree AV block with a rate of 81. There are no acute ST or T wave changes. This was unchanged compared to previous EKG dated 09/25/2020. CBC was within normal limits. Comprehensive metabolic profile showed a slightly elevated creatinine 1.44 and a BUN of 31. These were unchanged compared to previous results. PT with INR and PTT were normal. Urinalysis was normal. Troponin was normal. CT scan of the brain was obtained. There is no acute intracranial abnormality. This was interpreted by the radiologist and reviewed by myself. Emergency Department Course and Treatment: Patient has a NIH score of 1 for the facial droop. This is unchanged compared to his baseline. Patient was advised to follow-up with his primary care physician in 5 to 7 days. Patient was instructed to return if worse in any way. Patient understood and was agreeable with the plan. All questions were answered. Disposition: Discharge home Impression: 1. TIA This note was generated with [employer] dictation software. It may contain incorrect words, spelling, and punctuation that were not noted in review of the chart prior to signing ED Disposition - Plan for ED Patient: Disposition: Home or Assisted Living Diagnosis: TIA (transient ischemic attack) Instructions: ED TIA: Transient Ischemic Attack Referrals: Castillo Pride DO [Primary Care Provider] - 5-7 Days
--- NOTE | 2020-09-27 14:45 | NURSING ---
NEEDS A REDRAW BLUE TOP, PER ABI IN THE LAB
--- NOTE | 2020-09-27 14:49 | RAD_ITS ---
STUDY: X-RAY CHEST REASON FOR EXAM: Male, 80 years old. L arm weakness. Post CVA and recent d/c TECHNIQUE: Single AP portable view of the chest. COMPARISON: Comparison is made with prior examination dated 09/25/2020. FINDINGS: EKG electrodes are seen. The lungs are clear and expanded. There is no demonstrated pleural abnormality. Normal size heart. Normal mediastinum and yuli. Normal visualized pulmonary arteries. There is atherosclerotic calcification of the aortic arch with tortuosity. There are diffuse degenerative changes of the visualized thoracic spine. Normal visualized ribs, clavicles, and shoulders. There is no demonstrated abnormality of the visualized soft tissue structures of the upper abdomen. RAD/Chest 1 View (Portable) IMPRESSION: Stable examination. No acute abnormality is seen. Electronically Signed: Ubaldo Lozada MD at 14:58 EST , Service support ,
[2020-09-27 14:51] LABS: Absolute Lymphocyte Count 1.76 X10^3/uL (0.83-4.51); Absolute Neutrophil Count 5.6 X10^3/uL (2.0-7.7); Basophil# 0.07 X10^3/uL; Basophil% 0.8 % (0-1); Eosinophil# 0.17 X10^3/uL; Hematocrit 43.9 % (40-54); Hemoglobin 14.9 g/dL (13.0-16.5); Lymphocyte # 1.76 X10^3/ul (4.0); Lymphocyte % 20.5 % (19-41); Mean Corp Hgb Conc 33.9 g/dL (32-36); Mean Corpuscular Hgb 32.6 pg (27.0-32.0); Mean Corpuscular Volume 96.1 fL (80-94); Mean Platelet Vol. 11.4 fl (6.2-12.0); Monocyte# 0.96 X10^3/uL; Monocyte% 11.2 % (0-10); NRBC Flagged by Analyzer 0 % (0-5); Neutrophil # 5.58 X10^3/uL (2.7-7.7); Neutrophil % 64.9 % (47-70); Platelet Count 120 K/mm3 (150-450); RBC Distribution Width CV 12.1 % (11.6-14.6); RBC Distribution Width SD 42.5 fl (35.1-43.9); Red Blood Count 4.57 M/mm3 (4.6-6.2); White Blood Count 8.6 K/mm3 (4.4-11.0)
[2020-09-27 15:04] LABS: ALB/GLOB Ratio 0.9 RATIO (0.9-2.4); AST(SGOT) 25 U/L (15-37); Alanine Aminotransfer ALT/SGPT 41 U/L (16-61); Albumin, Serum 3.8 g/dL (3.2-5.0); Alkaline Phosphatase 75 U/L (45-117); Anion Gap 4 (5-15); BUN 31 mg/dL (7-18); BUN/Creat Ratio 21.5 RATIO (10-20); Calcium,Total 9.7 mg/dL (8.5-10.1); Chloride 103 mmol/L (98-107); Creatinine, Serum 1.44 mg/dL (0.70-1.30); EST Glomerular Filtration Rate 50 mL/min (>60); Est Glom Filt Rate - Afr Amer 60 mL/min (>60); Estimated Creatinine Clearance 38.77 ml/min; Globulin 4.2 g/dL (2.2-4.2); Glucose 244 mg/dL (74-106); Potassium 4.6 mmol/L (3.5-5.1); Sodium Level 135 mmol/L (136-145)
[2020-09-27 15:26] LABS: Partial Thromboplast Time 22.2 Seconds (24.1-36.2); Prothrombin Time (Protime)PT. 12.4 SECONDS (11.7-14.9)
[2020-09-27 17:06] LABS: Bacteria 0 SEEN /hpf (None Seen); Mucous, Urine 0 SEEN /hpf (<or=2+); Red Blood Cells-Urine 0 SEEN /hpf (0-5); Squamous Epithelial Cells - UA 0 SEEN /hpf (0-5); White Blood Cells 0 SEEN /hpf (0-5)
[2020-09-27 17:15] LABS: Color, Urine Yellow (Yellow); Glucose, Dipstick 250 mg/dl (Normal); Ketone-Dipstick Negative (Negative); Leukocyte Esterase-Dipstick Negative /ul (Negative); Nitrite-Dipstick Negative (Negative); Occult Blood-Urine Negative /ul (Negative); Protein-Dipstick Negative (Negative); Urine Bilirubin Dipstick Negative (Negative); Urine Clarity Clear (Clear); Urine Urobilinogen Normal (Normal)
[2020-09-27 17:22] LABS: Hyaline Cast 0-5 SEEN /lpf (0-5)
[2020-09-27 17:25] LABS: Renal Epithelial Cells 0-5 SEEN /hpf (0-5)
== END 2020-09-27 19:56 | disposition home or self-care (01) ==
PROVIDERS: Emergency Provider Emergency Medicine; PCP Family Medicine
DX: G45.9 Transient cerebral ischemic attack, unspecified (principal); I10 Essential (primary) hypertension; E78.00 Pure hypercholesterolemia, unspecified; E10.9 Type 1 diabetes mellitus without complications; Z79.4 Long term (current) use of insulin
CPT/HCPCS: 70450; 71045; 80053; 81001; 84484; 85025; 85610; 85730; 93005; 99285; P9612; A4216